=== PATIENT | female | born 1980 | race Caucasian/White ===

== ENCOUNTER → 2017-08-26 10:52 | Outpatient (CLI) | payer OTHER, SELFPAY ==
[2017-08-26 12:31] LABS: Thyroid Stimulating Hormone 1.49 uIU/ml (0.358-3.740)
== END ==
PROVIDERS: PCP Obstetrics & Gynecology; Visit Provider Obstetrics & Gynecology
DX: E66.9 Obesity, unspecified (principal)
CPT/HCPCS: 36415; 84443

== ENCOUNTER → 2018-10-17 09:49 | Outpatient (POV) | payer OTHER, SELFPAY | PROVIDERS: Visit Provider Specialist | DX: R20.2 Paresthesia of skin (principal); R20.0 Anesthesia of skin; M79.632 Pain in left forearm; M79.631 Pain in right forearm | CPT/HCPCS: 95886; 95908 ==

== ENCOUNTER → 2019-01-29 13:10 | Outpatient (CLI) | payer OTHER, SELFPAY ==
[2019-01-29 15:22] LABS: Alanine Aminotransferase 25 U/L (12-78); Albumin Level 3.5 gm/dL (3.4-5.0); Alkaline Phosphatase 89 U/L (46-116); Anion Gap 11.8 mEq/L (5-15); Aspartate Amino Transferase 18 U/L (15-37); Bilirubin,Total 0.5 mg/dL (0.2-1.0); Blood Urea Nitrogen 11 mg/dL (7-18); Calcium 8.8 mg/dL (8.5-10.1); Carbon Dioxide 27 mmol/L (21.0-32.0); Chloride 102 mmol/L (98-107); Chol/HDL Ratio 4.2 (1-3.5); Cholesterol 154 mg/dL (140-200); Creatinine,Serum 0.92 mg/dL (0.55-1.02); Estimated Glomerular Filt Rate 69 ml/min (>60); Free T4 (Free Thyroxine) 0.98 ng/dl (0.76-1.46); GFR (African American) 84 ML/MIN (>60); Globulin 3.6 gm/dl (1.3-3.2); Glucose 103 mg/dL (74-106); HDL Cholesterol 37 mg/dL (29-89); LDL Cholesterol 99 mg/dL (0-130); Potassium 3.8 mmoL/L (3.5-5.1); Sodium 137 mmol/L (136-145); Thyroid Stimulating Hormone 2.38 uIU/ml (0.358-3.740); Total Protein,Serum 7.1 gm/dL (6.4-8.2); Triglycerides 88 mg/dL (30-200); VLDL Cholesterol 18 mg/dL (0-40)
[2019-01-29 15:30] LABS: Basophils # 0.1 K/mm3 (0-0.2); Basophils % 0.6 % (0.1-2.0); Eosinophils # 0.5 K/mm3 (0.0-0.4); Eosinophils % 5.1 % (0.1-12.0); Hematocrit 38.3 % (37.0-47.0); Hemoglobin 11.9 g/dL (12.2-16.2); Lymphocytes # 2.3 K/mm3 (0.7-4.5); Lymphocytes % 22.3 % (10-50); Mean Corpuscular HGB Conc 31.1 g/dL (31.8-35.4); Mean Corpuscular Volume 80.5 fl (81-99); Mean Platelet Volume 6.9 fl (7.4-10.4); Monocytes # 0.5 K/mm3 (0.1-1.0); Monocytes % 5.2 % (1.7-9.3); Neutrophils # 6.8 K/mm3 (1.8-7.8); Neutrophils % 66.9 % (37.0-80.0); Platelet Count 427 K/mm3 (142-424); Red Blood Count 4.76 M/mm3 (4.20-5.40); Red Cell Distribution Width 14.4 % (11.5-17.5); White Blood Count 10.1 K/mm3 (4.8-10.8)
[2019-01-30 14:22] LABS: Vitamin D 25 Hydroxy 48.4 ng/mL (30.0-100.0)
== END ==
PROVIDERS: Visit Provider Nurse Practitioner Family
DX: Z00.00 Encounter for general adult medical examination without abnormal findings (principal); Z79.899 Other long term (current) drug therapy
CPT/HCPCS: 80053; 80061; 82652; 84439; 84443; 85025

== ENCOUNTER → 2019-01-29 17:32 | Outpatient (CLI) | payer OTHER, SELFPAY ==
--- NOTE | 2019-01-29 17:41 | XR_ITS ---
PROCEDURE: XR CHEST 2V CLINICAL HISTORY: cough COMPARISON: No exams were available for comparison FINDINGS: The cardiomediastinal silhouette and pulmonary vascularity are within normal limits. The lungs are clear without infiltrates, suspicious nodules, or pleural effusions. No acute bony abnormalities. IMPRESSION: No acute findings. Dictated by: Parish Andrade MD 01/30/2019 06:24 Signed by: <Electronically signed by Parish Andrade MD in [place]> 01/30/2019 06:24
== END ==
PROVIDERS: PCP Nurse Practitioner Family; Visit Provider Nurse Practitioner Family
DX: Z00.00 Encounter for general adult medical examination without abnormal findings (principal); F17.200 Nicotine dependence, unspecified, uncomplicated
CPT/HCPCS: 71046

== ENCOUNTER → 2019-02-07 10:36 | Outpatient (CLI) | payer OTHER, SELFPAY ==
[2019-02-07 14:39] LABS: Ferritin 27 ng/mL (8-388)
[2019-02-09 11:09] LABS: Iron 76 ug/dL (27-159); UIBC 286 ug/dL (131-425)
[2019-02-09 13:10] LABS: Iron Saturation 21 % (15-55)
== END ==
PROVIDERS: Visit Provider Nurse Practitioner Family
DX: D64.9 Anemia, unspecified (principal); R53.83 Other fatigue
CPT/HCPCS: 36415; 82728; 83540; 83550

== ENCOUNTER → 2019-02-13 17:11 | Outpatient (CLI) | payer OTHER, SELFPAY | PROVIDERS: Visit Provider Nurse Practitioner Family | DX: R30.9 Painful micturition, unspecified (principal) | CPT/HCPCS: 87086; 87088; 87186 ==

== ENCOUNTER → 2019-03-02 09:06 | Outpatient (CLI) | payer OTHER, SELFPAY ==
[2019-03-02 09:42] LABS: Basophils % 0.5 % (0.1-2.0); Eosinophils # 0.5 K/mm3 (0.0-0.4); Eosinophils % 5.2 % (0.1-12.0); Hematocrit 37.9 % (37.0-47.0); Hemoglobin 11.7 g/dL (12.2-16.2); Lymphocytes # 2.3 K/mm3 (0.7-4.5); Lymphocytes % 26.2 % (10-50); Mean Corpuscular HGB Conc 30.9 g/dL (31.8-35.4); Mean Corpuscular Hemoglobin 24.9 pg (27.0-31.2); Mean Corpuscular Volume 80.7 fl (81-99); Mean Platelet Volume 6.8 fl (7.4-10.4); Monocytes # 0.4 K/mm3 (0.1-1.0); Monocytes % 4.2 % (1.7-9.3); Neutrophils # 5.6 K/mm3 (1.8-7.8); Neutrophils % 63.9 % (37.0-80.0); Platelet Count 385 K/mm3 (142-424); Red Blood Count 4.69 M/mm3 (4.20-5.40); Red Cell Distribution Width 15.7 % (11.5-17.5); White Blood Count 8.8 K/mm3 (4.8-10.8)
[2019-03-02 11:10] LABS: Thyroid Stimulating Hormone 2.25 uIU/ml (0.358-3.740)
== END ==
PROVIDERS: Visit Provider Obstetrics & Gynecology
DX: N93.8 Other specified abnormal uterine and vaginal bleeding (principal)
CPT/HCPCS: 36415; 84443; 85025

== ENCOUNTER → 2019-03-04 09:58 | Outpatient (CLI) | payer OTHER, SELFPAY ==
--- NOTE | 2019-03-04 09:59 | US_ITS ---
PROCEDURE: US TRANSVAGINAL CLINICAL INDICATION: PELVIC PAIN COMPARISON: PTV US PELVIS-TRANSVAGINAL ONLY from 01/29/2014 FINDINGS: Uterus is empty and measures 8.8 x 4.4 x 5.0 centimetres. Endometrial stripe is 1.2 centimeters. There is no cul-de-sac fluid. Right ovary is 3.2 x 2.1 x 2.9 centimeters small follicles and blood flow. Left ovary is 3.1 x 1.6 x 2.9 centimeters with small follicles and blood flow. IMPRESSION: Bilateral of varying follicles. No acute process. Dictated by: Román Vines 03/04/2019 14:12 Electronically signed by Román Vines in [place] 03/04/2019 14:12
== END ==
PROVIDERS: PCP Nurse Practitioner Family; Visit Provider Obstetrics & Gynecology
DX: R10.2 Pelvic and perineal pain (principal)
CPT/HCPCS: 76830

== ENCOUNTER → 2019-12-11 10:34 | Outpatient (CLI) | payer OTHER, SELFPAY ==
[2019-12-11 13:09] LABS: Coronavirus 19 IgG Antibody Negative (Negative); Coronavirus 19 IgM Antibody Negative (Negative)
== END ==
PROVIDERS: Visit Provider Obstetrics & Gynecology
DX: Z01.818 Encounter for other preprocedural examination (principal)
CPT/HCPCS: 36415; 86328

== ENCOUNTER 2020-06-12 10:26 | Emergency (ER) | payer OTHER, SELFPAY ==
[2020-06-12 10:40] VITALS: BP 157/74; PULSE 119; RESP 21; TEMP 37.4; O2SAT 96; BMI 49.8
--- NOTE | 2020-06-12 11:03 | HMH.EDUTC ---
[facility] [place] Dis[place] Clinical Impression: Strep throat Disposition: Home, Self-Care Condition on Discharge: Good Instructions: DI for Strep Throat, Strep Throat, Cephalexin Additional Instructions: *Monitor Temp, Over the counter Motrin or Tylenol as directed/as needed Tylenol every 4 hours and Motrin every 6 hours (as long as your family doctor has told you that you can take it) for fever or pain. and straight to ER if unable to lower temp less than 101.0 after medication given *Warm salt water gargles may help to soothe the throat *Throat Lozenges *Warm fluids like tea with honey may help to soothe the throat *Sleep elevated *Humidifier/Vaporizer *If you did not take Penicillin shot or was unable to, start taking antibiotic immediately and make sure that you take it for the FULL length of time although you should start to feel better in 24-48 hours *change toothbrush and toothpaste 24-48 hours after starting to take antibiotics so you do not reinfect yourself Monitor Temp. Tylenol and/or Ibuprofen as needed. ER if fever is no less than 101 despite alternating Tylenol and Ibuprofen * Encourage fluids, water, Gatorade, powerade, pedialyte if /toddler/or child *Cold fluids, popsicles and ice cream may feel good on his throat Follow up IMMEDIATELY for new or worsening symptoms or no Noticeable improvement over the next 48-72 hours. 911 for difficulty breathing or swallowing Prescriptions: cephALEXin [Keflex 500mg Cap] 500 mg PO Q12H 10 Days #20 cap Transmission Status: Pending to [id number] Referrals: PCP,No [Primary Care Provider] - As needed Time of Disposition: 11:07 Medical Decision Making - Zander Inquiry Pt receiving controlled substance: No Zander was queried for this patient: No Vital Signs: 06/12/20 10:40 Temperature 99.3 F Temperature Source Oral Pulse Rate [Left Brachial] 119 H Respiratory Rate 21 Blood Pressure [Left Arm] 157/74 H Blood Pressure Mean [Left Arm] 101 Blood Pressure Source [Left Arm] Automatic Cuff Blood Pressure Position [Left Arm] Sitting 02 Sat by Pulse Oximetry 96 Oxygen Delivery Method Room Air Medical Decision Narrative: Patient states that she has taken Keflex before without complications or reactions [facility] [place] HPI - General Stated complaint: strep throat Time Seen by Provider: 06/12/20 11:03 Mode of Arrival: Ambulatory Source of Information: Patient Limitations: No Limitations Description of Symptoms (Recalled from Triage Doc. by RN): PATIENT C/O SORE THROAT WITH RIGHT PATCH TO RIGHT SIDE OF THROAT HEENT Symptoms (Recalled from RN notes): Yes Resp Symptoms (Recalled from RN notes): No Skin Symptoms (Recalled from RN notes): No MS Symptoms (Recalled from RN notes): No Functional Status (Recalled from RN notes): WNL - History of Present Illness Provider Complaint: Patient state that for the last couple of days she has been having sore throat States that today she noticed she had white patchy area on right side of throat and thinks she may have strep throat so she came in to get checked - Related Data Home Medications Medication Instructions Recorded Confirmed Losartan Potassium [Cozaar 100mg 100 mg PO DAILY 06/12/20 06/12/20 Tablets] Metoprolol Succinate [Metoprolol 25 mg PO DAILY 06/12/20 06/12/20 Succinate 25mg Tablet*] hydroCHLOROthiazide 12.5 mg PO DAILY 06/12/20 06/12/20 [Hydrochlorothiazide 12.5mg Tab] Previous Rx's Medication Instructions Recorded cephALEXin [Keflex 500mg Cap] 500 mg PO Q12H 10 Days #20 cap 06/12/20 Allergies Allergy/AdvReac Type Severity Reaction Status Date / Time Penicillins [PENICILLINS] Allergy Unknown Verified 05/25/20 08:30 - Worker's Comp Is this a Worker's Comp case?: No [facility] History - Hepatitis A Screen Drug use history?: No High risk sexual behaviors?: No History of sexually transmitted infection?: No Currently employed?: No Childcare worker?: No Do you have indoor p
[2020-06-12 11:06] LABS: UTC Strep Screen (Rapid) Positive (Negative)
[2020-06-12 11:11] VITALS: BP 157/74; PULSE 119; RESP 21; TEMP 37.4; O2SAT 96
== END 2020-06-12 11:13 | disposition home or self-care (01) ==
PROVIDERS: Emergency Provider Nurse Practitioner
DX: J02.0 Streptococcal pharyngitis (principal); I10 Essential (primary) hypertension; K21.9 Gastro-esophageal reflux disease without esophagitis; Z79.899 Other long term (current) drug therapy
CPT/HCPCS: 87880; 99202; G0463

== ENCOUNTER → 2020-06-29 13:36 | Outpatient (CLI) | payer OTHER, SELFPAY ==
--- NOTE | 2020-06-29 13:40 | XR_ITS ---
PROCEDURE: XR CHEST 2V CLINICAL HISTORY: cough COMPARISON: CR XR CHEST 2V from 01/29/2019 FINDINGS: The cardiomediastinal silhouette and pulmonary vascularity are within normal limits. The lungs are clear without infiltrates, suspicious nodules, or pleural effusions. No acute bony abnormalities. IMPRESSION: No acute findings. Dictated by: Parish Andrade MD 06/29/2020 16:39 Parish Andrade MD in [place] 06/29/2020 16:39
== END ==
PROVIDERS: Visit Provider Nurse Practitioner Family
DX: R06.09 Other forms of dyspnea (principal); R05 Cough; I10 Essential (primary) hypertension; E78.5 Hyperlipidemia, unspecified; F17.200 Nicotine dependence, unspecified, uncomplicated; G47.33 Obstructive sleep apnea (adult) (pediatric); Z99.89 Dependence on other enabling machines and devices
CPT/HCPCS: 71046

== ENCOUNTER → 2020-07-08 15:07 | Outpatient (CLI) | payer OTHER, SELFPAY ==
--- NOTE | 2020-07-08 15:08 | CA_ITS ---
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 Ht: 5 ft 6 in Wt: 306lbs BSA: 2.40 BP: 135/54 mmHg Indications: SOA,SMOKER,HTN,OBESITY,HLD,HENNA TDS-BODY HABITUS 2D Dimensions LVOT 1.96 cm (M/F) 1.5-2.5 LA Volume 42.30 mL LA Volume Index 17.69 mL/m2 (M/F) 16-34 M-Mode Dimensions RVDd 2.88 cm (0.9-2.6) LA Diam 4.12 cm (1.9-4.0) LVDd 4.33 cm (3.5-5.7) Ao Diam 2.86 cm (2.0-3.7) LVDs 2.69 cm (3.5-5.7) IVSd 1.18 cm (0.6-1.1) PWd 0.61 cm (0.6-1.1) EF (Teich) 68.20% FS 37.90% EDV (Teich) 84.40 mL ESV (Teich) 26.80 mL LV Diastology E Decel Time 150.00 (160-240 msec) E/A Ratio 1.8 MED E' 10.00 (< 7 cm/sec) E'/MED E' Ratio 12.30 (>14) LAT E' 15.60 (<10 cm/sec) E/LAT E' Ratio 7.88 (>14) Aortic Valve AO Peak GR. 7.30 mmHg Mitral Valve MV E Max Billy. 123.00 (40-130 cm/s) MV A Velocity 68.00 (40-130 cm/s) E/A Ratio 1.81 MV Decel. Time 150.00 (160-240 ms) MV PHT 44.00 ms Pulmonary Valve PV Peak Velocity 69.00 (50-150 cm/s) Left Ventricle Left atrium is mildly enlarged, left ventricle is normal size, there is no concentric left ventricular hypertrophy, visually estimated ejection fraction 55% with no regional wall motion abnormality, diastolic parameters are within normal range. Right Ventricle Right atrium is normal size, right ventricle is mildly enlarged with normal contractility. Aortic Valve Aortic valve is grossly normal, there is no aortic stenosis or aortic insufficiency. Mitral Valve Mitral valve is grossly normal, there is trace mitral regurgitation. Tricuspid Valve Tricuspid valve is grossly normal, there is trace tricuspid regurgitation, tricuspid regurgitation jet velocity is inadequate for calculation of the right ventricular systolic pressure. Pulmonic Valve Pulmonic valve is poorly visualized. Great Vessels Aortic root is normal size. Pericardium No significant pericardial effusion noted. Conclusion 1. Normal left ventricular size, preserved left ventricular systolic function, visually estimated ejection fraction 55% with no regional wall motion abnormality, diastolic parameters are within normal range. 2. Mildly enlarged right ventricle with normal contractility. 3. Trace mitral and tricuspid regurgitation. 4. No significant pericardial effusion noted. Electronically signed by : Nestor Estrada, 07/11/2020 20:42:15
== END ==
PROVIDERS: PCP Nurse Practitioner Family; Visit Provider Nurse Practitioner Family
DX: R06.00 Dyspnea, unspecified (principal); I10 Essential (primary) hypertension; E78.5 Hyperlipidemia, unspecified; R53.83 Other fatigue; E66.9 Obesity, unspecified; F17.200 Nicotine dependence, unspecified, uncomplicated; G47.33 Obstructive sleep apnea (adult) (pediatric); Z99.89 Dependence on other enabling machines and devices
CPT/HCPCS: 93306

== ENCOUNTER 2020-12-13 16:35 | Emergency (ER) | payer OTHER, SELFPAY ==
[2020-12-13 17:09] VITALS: BP 130/85; PULSE 87; RESP 16; TEMP 36.9; O2SAT 99; BMI 46.3
--- NOTE | 2020-12-13 17:49 | HMH.EDUTC ---
[facility] [place] Impression: Left leg cellulitis Disposition: Home, Self-Care Condition on Discharge: Good Instructions: Cellulitis Additional Instructions: Keep the affected area clean and dry. Follow up with your regular doctor. Take the antibiotics as directed and apply the topical antibiotics as directed. Apply warm wet compresses to the affected area three or four times per day. GO TO THE ER FOR ANY WORSENING SYMPTOMS Prescriptions: Sulfamethoxazole/Trimethoprim [Bactrim DS tablet] 1 each PO BID 10 Days #20 tab Transmission Status: Received by [facility] Mupirocin [Bactroban 2% Ointment 22gm tube] 1 applicatio TP TID 7 Days #1 tube Transmission Status: Received by [facility] cephALEXin [cephALEXin 500mg capsule] 500 mg PO Q6H 10 Days #40 cap Transmission Status: Received by [facility] Referrals: Jose Luke APRN [Primary Care Provider] - Time of Disposition: 17:55 Medical Decision Making - Medical Records Medical records reviewed: No: I reviewed the patient's medical records. - Zander Inquiry Pt receiving controlled substance: No Vital Signs: 12/13/20 17:09 12/13/20 17:55 Temperature 98.5 F 98.5 F Temperature Source Oral Pulse Rate 85 Pulse Rate [Left] 87 Respiratory Rate 16 16 Blood Pressure 128/84 Blood Pressure [Right Arm] 130/85 Blood Pressure Mean [Right Arm] 100 02 Sat by Pulse Oximetry 99 [facility] [place] - General Stated complaint: bee sting on calf Time Seen by Provider: 12/13/20 17:40 Mode of Arrival: Ambulatory Source of Information: Patient Limitations: No Limitations Description of Symptoms (Recalled from Triage Doc. by RN): pt believes she has been bitten or stung by an insect. she has a baseball sized rash on her L calf that she c/o itching. HEENT Symptoms (Recalled from RN notes): No Resp Symptoms (Recalled from RN notes): No Skin Symptoms (Recalled from RN notes): Yes (baseball sized rash to L calf) MS Symptoms (Recalled from RN notes): No Functional Status (Recalled from RN notes): na - History of Present Illness Provider Complaint: She states that she has had a red area on her left lower leg for the past 5 days. The redness is getting worse. She denies significant pain at the site. It does itch some. She denies any drainage or open wound at the site. - Related Data Previous Rx's Medication Instructions Recorded amlodipine 10 mg tablet 10 mg PO DAILY #30 tab 12/12/20 hydrochlorothiazide 12.5 mg tablet 12.5 mg PO DAILY #30 tab 12/12/20 metoprolol succinate 25 mg 25 mg PO DAILY #30 tab 12/12/20 tablet,extended release 24 hr Mupirocin [Bactroban 2% Ointment 1 applicatio TP TID 7 Days #1 tube 12/13/20 22gm tube] Sulfamethoxazole/Trimethoprim 1 each PO BID 10 Days #20 tab 12/13/20 [Bactrim DS tablet] cephALEXin [cephALEXin 500mg 500 mg PO Q6H 10 Days #40 cap 12/13/20 capsule] Allergies Allergy/AdvReac Type Severity Reaction Status Date / Time Penicillins [PENICILLINS] Allergy Unknown Verified 08/24/20 08:55 - Worker's Comp Is this a Worker's Comp case?: No [facility] History - Hepatitis A Screen Drug use history?: No High risk sexual behaviors?: No History of sexually transmitted infection?: No Currently employed?: No Childcare worker?: No Do you have indoor plumbing?: Yes Do you have electricity?: Yes Attestation statement:: This patient has been screened for Hepatitis A risk factors. I have reviewed the patient's past medical history: Yes Medical History: Reports:: Gastroesophageal Reflux Disease(GERD), Hypertension Other Medical History: Reports: Sinus Problems, Other Comment: HENNA Other Surgeries: Yes: Sinus Surgery, Other Amputation: No Fractures: No Comment: wisdom teeth. 2011-sinus surgery. 2017-Lasik, bilaterally - Social History Smoking Status: Current every day smoker Tobacco Type: cigarettes # Packs/Day (cigarettes): 1 #Yrs smoked (if former smoker): 5 Alcoh
[2020-12-13 17:55] VITALS: BP 128/84; PULSE 85; RESP 16; TEMP 36.9
== END 2020-12-13 18:05 | disposition home or self-care (01) ==
PROVIDERS: Emergency Provider Nurse Practitioner Family; PCP Nurse Practitioner Family
DX: L03.116 Cellulitis of left lower limb (principal); S80.862A Insect bite (nonvenomous), left lower leg, initial encounter; W57.XXXA Bitten or stung by nonvenomous insect and other nonvenomous arthropods, initial encounter; F17.210 Nicotine dependence, cigarettes, uncomplicated

== ENCOUNTER → 2021-02-22 09:56 | Outpatient (CLI) | payer OTHER, SELFPAY ==
[2021-02-22 10:56] LABS: Chloride 104 mmol/L (98-107); Sodium 140 mmol/L (136-145)
[2021-02-22 10:57] LABS: Potassium 3.9 mmoL/L (3.5-5.1)
[2021-02-22 10:59] LABS: Alanine Aminotransferase 14 U/L (12-78); Alkaline Phosphatase 79 U/L (38-126); Anion Gap 14.9 mEq/L (5-15); Aspartate Amino Transferase 18 U/L (14-36); Bilirubin,Direct 0.1 mg/dl (0.0-0.4); Bilirubin,Indirect 0.4 mg/dL (0.0-0.9); Bilirubin,Total 0.5 mg/dl (0.2-1.3); Bilirubin,Unconjugated 0.4 mg/dL (0.0-1.1); Blood Urea Nitrogen 9 mg/dl (7-17); Carbon Dioxide 25 mmol/L (22.0-30.0); Cholesterol 150 mg/dl (140-200); Estimated Glomerular Filt Rate 94 ml/min (>60); GFR (African American) 113 ML/MIN (>60); Triglycerides 80 mg/dl (30-150); VLDL Cholesterol 16 mg/dL (0-40)
[2021-02-22 11:00] LABS: Albumin Level 4.1 g/dl (3.5-5.0); Calcium 8.7 mg/dl (8.4-10.2); Chol/HDL Ratio 3.6 (1-3.5); Glucose 115 mg/dl (74-100); HDL Cholesterol 42 mg/dl (40-60); Total Protein,Serum 7.2 g/dl (6.3-8.2)
[2021-02-22 11:11] LABS: Direct LDL Cholesterol 89.42 mg/dL (100-129)
== END ==
PROVIDERS: Visit Provider Urology
DX: I10 Essential (primary) hypertension (principal); E78.2 Mixed hyperlipidemia
CPT/HCPCS: 36415; 80048; 80061; 80076

== ENCOUNTER 2021-04-10 16:49 | Emergency (ER) | payer OTHER, SELFPAY ==
[2021-04-10 18:15] VITALS: BP 102/62; PULSE 102; RESP 19; TEMP 37.1; O2SAT 98; BMI 45.6
--- NOTE | 2021-04-10 19:16 | HMH.EDUTC ---
[facility] [place] Disposition Clinical Impression: Sinusitis Qualifiers: Sinusitis location: unspecified location Chronicity: unspecified Qualified Code(s): J32.9 - Chronic sinusitis, unspecified Disposition: Home, Self-Care Condition on Discharge: Good Instructions: Sinusitis, DI for Sinusitis Additional Instructions: *Monitor Temp, Over the counter Motrin or Tylenol as directed/as needed Tylenol every 4 hours and Motrin every 6 hours (as long as your family doctor has told you that you can take it) for fever or pain. and straight to ER if unable to lower temp less than 101.0 after medication given *Warm salt water gargles may help to soothe the throat *Throat Lozenges *Warm fluids like tea with honey may help to soothe the throat *Sleep elevated *Humidifier/Vaporizer *Flonase 2 sprays in each nostril daily but be aware that it may take 2-3 days before you notice improvement Take medication as prescribed Follow up IMMEDIATELY for new or worsening symptoms or no Noticeable improvement over the next 48-72 hours. 911 for difficulty breathing or swallowing Prescriptions: Fluticasone Propionate [Flonase 50mcg nasal spray 16gm] 1 spr NS DAILY #1 each [facility] methylPREDNISolone [Medrol 4mg tab] 4 mg PO DIRECTED #21 tab Transmission Status: Pending to [facility] Azithromycin [Z-Rocky 250mg Tab] 250 mg PO DIRECTED #6 tab Transmission Status: Pending to [facility] Referrals: Provider,Referral, MD [Primary Care Provider] - As needed Time of Disposition: 19:26 Medical Decision Making - Zander Inquiry Pt receiving controlled substance: No Zander was queried for this patient: No Vital Signs: 04/10/21 18:15 Temperature 98.8 F Temperature Source Oral Pulse Rate [Right Brachial] 102 H Respiratory Rate 19 Blood Pressure [Right Arm] 102/62 L Blood Pressure Mean [Right Arm] 75 Blood Pressure Source [Right Arm] Automatic Cuff Blood Pressure Position [Right Arm] Sitting 02 Sat by Pulse Oximetry 98 Oxygen Delivery Method Room Air Medical Decision Narrative: Denies [facility] [place] HPI - General Stated complaint: sinus infection Time Seen by Provider: 04/10/21 19:19 Mode of Arrival: Ambulatory Source of Information: Patient Limitations: No Limitations Description of Symptoms (Recalled from Triage Doc. by RN): PATIENT C/O SINUS PAIN AND PRESSURE SINCE SATURDAY HEENT Symptoms (Recalled from RN notes): Yes Resp Symptoms (Recalled from RN notes): No Skin Symptoms (Recalled from RN notes): No MS Symptoms (Recalled from RN notes): No Functional Status (Recalled from RN notes): WNL - History of Present Illness Provider Complaint: Patient states that she started with sinus congestion over a week ago but since Saturday she has been having sinus pain and pressure along with drainage in the back of her throat States that at times she can cough it up but feels like she is swallowing some of it and it makes her have a bad taste in her mouth States that this evening she was having pressure like feeling behind her eyes and felt worse when she would bend over so she came in to get checked - Related Data Home Medications Medication Instructions Recorded Confirmed Amlodipine Besylate [Amlodipine 10 mg PO DAILY 04/10/21 04/10/21 10mg Tab] Metoprolol Succinate [Metoprolol 25 mg PO DAILY 04/10/21 04/10/21 Succinate 25mg Tablet*] Previous Rx's Medication Instructions Recorded hydrochlorothiazide 12.5 mg tablet 12.5 mg PO DAILY #30 tab 02/22/21 Azithromycin [Z-Rocky 250mg Tab] 250 mg PO DIRECTED #6 tab 04/10/21 Fluticasone Propionate [Flonase 1 spr NS DAILY #1 each 04/10/21 50mcg nasal spray 16gm] methylPREDNISolone [Medrol 4mg 4 mg PO DIRECTED #21 tab 04/10/21 tab] Allergies Allergy/AdvReac Type Severity Reaction Status Date / Time Penicillins [PENICILLINS] Allergy Unknown Verified 04/07/21 08:26 - Worker's Comp Is this a
[2021-04-10 19:27] VITALS: BP 102/62; PULSE 102; RESP 19; TEMP 37.1; O2SAT 98
== END 2021-04-10 19:30 | disposition home or self-care (01) ==
PROVIDERS: Emergency Provider Nurse Practitioner
DX: J32.9 Chronic sinusitis, unspecified (principal); K21.9 Gastro-esophageal reflux disease without esophagitis; I10 Essential (primary) hypertension; F17.210 Nicotine dependence, cigarettes, uncomplicated
CPT/HCPCS: 99202; G0463

== ENCOUNTER → 2021-05-23 20:40 | Outpatient (CLI) | payer OTHER, SELFPAY | PROVIDERS: PCP Emergency Medicine; Visit Provider Nurse Practitioner | DX: U07.1 COVID-19 (principal) | CPT/HCPCS: C9803; U0003; U0005 ==

== ENCOUNTER → 2021-10-25 12:46 | Outpatient (CLI) | payer OTHER, SELFPAY ==
--- NOTE | 2021-10-25 12:46 | US_ITS ---
FINAL REPORT TECHNIQUE: Sonographic images of the pelvis were obtained transvaginally. CLINICAL HISTORY: HEAVY DUB-- X 3 WKS COMPARISON: 03/04/2019 FINDINGS: The uterus is anteverted and anteflexed. It measures 9.4 x 4.5 x 5.8 cm. The endometrial stripe measures 9 mm. This is normal for a. The myometrium is homogeneous. Nabothian cysts are noted in the cervix which is otherwise unremarkable. The right ovary measures 1.3 x 2.5 x 1.0 cm. A small cyst adjacent to the right ovary could be a par ovarian cyst or small exophytic cyst. This measures 1.9 cm. The left ovary measures 4.6 x 5.5 x 3.2 cm. There is a simple, 4.7 cm cyst, likely functional. Color imaging to the ovaries is within normal limits. There is no free fluid. IMPRESSION: 1. Normal endometrial stripe for age. 2. Left ovarian cyst, likely functional. Consider follow-up exam in 6 or 10 weeks to evaluate for expected resolution. 3. Small right paraovarian cyst versus exophytic cyst. This can also be reevaluated at short follow-up. Authenticated by Vibha Wild MD on 10/25/2021 05:13:16 PM [facility]
[2021-10-25 14:00] LABS: Basophils # 0.1 K/mm3 (0-0.2); Basophils % 1.1 % (0.1-2.0); Eosinophils # 0.5 K/mm3 (0.0-0.4); Eosinophils % 5.3 % (0.1-12.0); Hematocrit 38.7 % (37.0-47.0); Lymphocytes # 2.4 K/mm3 (0.7-4.5); Lymphocytes % 26.8 % (10-50); Mean Corpuscular HGB Conc 33.6 g/dL (31.8-35.4); Mean Corpuscular Hemoglobin 27.8 pg (27.0-31.2); Mean Corpuscular Volume 82.7 fl (81-99); Mean Platelet Volume 7.5 fl (7.4-10.4); Monocytes # 0.5 K/mm3 (0.1-1.0); Monocytes % 5.3 % (1.7-9.3); Neutrophils # 5.6 K/mm3 (1.8-7.8); Neutrophils % 61.4 % (37.0-80.0); Platelet Count 366 K/mm3 (142-424); Red Blood Count 4.68 M/mm3 (4.20-5.40); Red Cell Distribution Width 14.3 % (11.5-17.5); White Blood Count 9.1 K/mm3 (4.8-10.8)
[2021-10-25 15:46] LABS: Thyroid Stimulating Hormone 1.94 uIU/mL (0.465-4.68)
== END ==
PROVIDERS: PCP Emergency Medicine; Visit Provider Obstetrics & Gynecology
DX: N93.8 Other specified abnormal uterine and vaginal bleeding (principal)
CPT/HCPCS: 36415; 76830; 84443; 85025

== ENCOUNTER → 2021-12-01 13:45 | Outpatient (CLI) | payer OTHER, SELFPAY ==
--- NOTE | 2021-12-01 13:45 | US_ITS ---
FINAL REPORT CLINICAL HISTORY: 6 week follow up, ovarian cyst COMPARISON: October 25, 2021 FINDINGS: Transvaginal sonographic images of the pelvis were obtained. The uterus measures 9.9 x 5.1 x 4.1 cm. The endometrium measures 8 mm, which is within normal limits. No uterine mass is identified. The right ovary measures 5.7 cm in length and left ovary measures 3.1 cm in length. Normal blood flow seen to the ovaries. There is a small cyst on the left ovary that measures 1.3 cm and previously measured 4.7 cm. There is a cyst on the right ovary that measures 4.2 cm. There is no evidence of free fluid. IMPRESSION: Bilateral ovarian cysts. Consider 6 week follow-up. Reviewed, Interpreted and Dictated by Albaro Lund III, MD Transcribed by Salma Acevedo Authenticated and [facility]
== END ==
PROVIDERS: PCP Emergency Medicine; Visit Provider Obstetrics & Gynecology
DX: N83.209 Unspecified ovarian cyst, unspecified side (principal)
CPT/HCPCS: 76830

== ENCOUNTER 2021-12-01 14:28 | Emergency (ER) | payer OTHER, SELFPAY ==
[2021-12-01 15:02] VITALS: BP 149/90; PULSE 91; RESP 18; TEMP 37.1; O2SAT 97; BMI 45.2
--- NOTE | 2021-12-01 15:08 | HMH.EDUTC ---
[facility] [place] Disposition Clinical Impression: Contact dermatitis Qualifiers: Contact dermatitis type: allergic Contact dermatitis trigger: non-food plants Qualified Code(s): L23.7 - Allergic contact dermatitis due to plants, except food Disposition: Home, Self-Care Condition on Discharge: Good Instructions: Poison Rani, Poison [place], Poison [place], DI for Contact Dermatitis Additional Instructions: Try to identify and avoid contact with the offending substance (poison rani). Don't start the oral steroids until tomorrow. Don't put the topical steroids (triamcinolone) on your face or your groin. Follow up with your regular doctor. GO TO THE ER FOR ANY WORSENING SYMPTOMS OR CONCERNS Prescriptions: diphenhydrAMINE HCL [Diphenhydramine HCl] 25 mg PO Q6HP PRN #30 cap PRN Reason: Itching Transmission Status: Received by [facility] methylPREDNISolone [Medrol] 4 mg PO DIRECTED 6 Days #21 packet Transmission Status: Received by [facility] Triamcinolone Acetonide 1 applicatio TP TIDP PRN 7 Days #1 gm PRN Reason: Itching Transmission Status: Received by [facility] Referrals: Christos Love MD [Primary Care Provider] - Forms: Work/School Release Time of Disposition: 15:20 Medical Decision Making - Medical Records Medical records reviewed: No: I reviewed the patient's medical records. - Zander Inquiry Pt receiving controlled substance: No Vital Signs: 12/01/21 15:02 12/01/21 15:21 Temperature 98.8 F 98.8 F Temperature Source Oral Pulse Rate 91 H Pulse Rate [Left] 91 H Respiratory Rate 18 18 Blood Pressure 149/90 H Blood Pressure [Right Arm] 149/90 H Blood Pressure Mean [Right Arm] 109 02 Sat by Pulse Oximetry 97 Orders (Tests/Meds): ED MEDICATIONS Discontinued Medications Generic Name Dose Route Start Last Admin Trade Name Freq PRN Reason Stop Dose Admin Methylprednisolone Sodium Succinate 125 mg 12/01/21 15:08 12/01/21 15:19 Methylprednisolone Sod Succ 125mg Vial IM 12/01/21 15:09 125 mg ONCE ONE Administration [facility] [place] HPI - General Stated complaint: rash Time Seen by Provider: 12/01/21 15:08 Description of Symptoms (Recalled from Triage Doc. by RN): patient comes in for bug bites, rash around ankles.symptoms began 1 week ago HEENT Symptoms (Recalled from RN notes): No Resp Symptoms (Recalled from RN notes): No Skin Symptoms (Recalled from RN notes): Yes MS Symptoms (Recalled from RN notes): No Functional Status (Recalled from RN notes): wnl - History of Present Illness Provider Complaint: She states that she has had a rash on her bilateral lower legs for the past 3 days. It began after she mowed her yard and weedeated. She states that the affected area itches a lot. She denies any rash anywhere else. She denies any fever/chills/and other symptoms. - Related Data Home Medications Medication Instructions Recorded Confirmed cholecalciferol (vitamin D3) 125 125 mcg PO DAILY 10/19/21 11/03/21 mcg (5,000 unit) capsule valacyclovir 1 gram tablet 1,000 mg PO BID tab 10/19/21 11/03/21 Previous Rx's Medication Instructions Recorded Fluticasone Propionate [Flonase 1 spr NS DAILY #1 each 04/10/21 50mcg nasal spray 16gm] amlodipine 10 mg tablet 10 mg PO DAILY #90 tab 09/27/21 hydrochlorothiazide 12.5 mg tablet 12.5 mg PO DAILY #30 tab 09/27/21 metoprolol succinate 25 mg 25 mg PO DAILY #30 tab 09/27/21 tablet,extended release 24 hr medroxyprogesterone 10 mg tablet 20 mg PO DAILY PRN #30 tab 10/19/21 Triamcinolone Acetonide 1 applicatio TP TIDP PRN 7 Days #1 12/01/21 gm diphenhydrAMINE HCL 25 mg PO Q6HP PRN #30 cap 12/01/21 [Diphenhydramine HCl] methylPREDNISolone [Medrol] 4 mg PO DIRECTED 6 Days #21 12/01/21 packet Allergies Allergy/AdvReac Type Severity Reaction Status Date / Time Penicillins [PENICILLINS] Allergy Unknown Verified 11/03/21 15:55 - Worker's Comp Is this a Worker's Comp case?: No
[2021-12-01 15:21] VITALS: BP 149/90; PULSE 91; RESP 18; TEMP 37.1
== END 2021-12-01 15:26 | disposition home or self-care (01) ==
PROVIDERS: Emergency Provider Nurse Practitioner Family; PCP Emergency Medicine
DX: L23.7 Allergic contact dermatitis due to plants, except food (principal)
CPT/HCPCS: 96372; 99212; G0463

== ENCOUNTER → 2022-02-09 09:53 | Outpatient (CLI) | payer OTHER, SELFPAY ==
--- NOTE | 2022-02-09 09:53 | US_ITS ---
FINAL REPORT CLINICAL HISTORY: ovarian cyst COMPARISON: December 01, 2021 FINDINGS: Transvaginal sonographic images of the pelvis were obtained. The uterus measures 8.4 x 4.1 cm. The endometrium measures 5 mm, which is within normal limits. No uterine mass is identified. The right ovary measures 2.6 cm cm in length and left ovary measures 4.4 cm cm in length. Normal blood flow seen to the ovaries. There is a left ovarian cyst measuring 3.4 cm and was previously 1.3 cm. There is no evidence of free fluid. IMPRESSION: 3.4 cm left ovarian cyst. Reviewed, Interpreted and Dictated by Albaro Lund III, MD Transcribed by Casie Godinez Authenticated and [facility]
== END ==
PROVIDERS: PCP Emergency Medicine; Visit Provider Obstetrics & Gynecology
DX: N83.209 Unspecified ovarian cyst, unspecified side (principal)
CPT/HCPCS: 76830

== ENCOUNTER → 2022-03-02 08:04 | Outpatient (CLI) | payer OTHER, SELFPAY ==
--- NOTE | 2022-03-02 08:04 | CA_ITS ---
FINAL REPORT TECHNIQUE: Compression blancas scale and Doppler evaluation CLINICAL HISTORY: LLE swelling, denies trauma, prominent varicose veins palpable in the posterior left calf. HTN, obesity. FINDINGS: Femoral and popliteal veins show normal compressibility and flow. Visualized portion of the calf veins are patent by Doppler exam. IMPRESSION: No evidence of left lower extremity deep venous thrombosis Reviewed, Interpreted and Dictated by Rose Guallpa MD Transcribed by Pilar Colvin Authenticated and . [facility]
== END ==
PROVIDERS: PCP Emergency Medicine; Visit Provider Internal Medicine Cardiovascular Disease
DX: M79.662 Pain in left lower leg (principal); M79.89 Other specified soft tissue disorders
CPT/HCPCS: 93971

== ENCOUNTER 2022-03-06 08:42 | Emergency (ER) | payer OTHER, SELFPAY ==
[2022-03-06 08:58] VITALS: BP 115/70; PULSE 68; RESP 18; TEMP 37; O2SAT 97; BMI 43.5
[2022-03-06 09:07] LABS: UTC Strep Screen (Rapid) Positive (Negative)
--- NOTE | 2022-03-06 09:16 | EXP.UTC ---
Discharge Plan Disposition Patient Disposition: Home, Self-Care Condition: Good Prescriptions Prescriptions: New methylprednisolone 4 mg Tablets,Dose Pack 4 mg PO DIRECTED Qty: 21 0RF cefdinir 300 mg capsule 300 mg PO BID Qty: 20 0RF ondansetron 4 mg Tablet,Disintegrating 4 mg PO Q8H PRN (Reason: Nausea) Qty: 20 0RF albuterol sulfate [Ventolin HFA] 90 mcg/actuation HFA aerosol inhaler 2 puff inhalation Q6H PRN (Reason: Shortness Of Breath Or Wheezing) Qty: 1 0RF No Action Slynd 4 mg (28) tablet 1 tab PO DAILY Qty: 28 11RF amlodipine 10 mg tablet 10 mg PO DAILY Qty: 90 2RF hydrochlorothiazide 12.5 mg tablet 12.5 mg PO DAILY Qty: 30 5RF metoprolol succinate 25 mg tablet extended release 24 hr 25 mg PO DAILY Qty: 30 5RF cholecalciferol (vitamin D3) 125 mcg (5,000 unit) capsule 125 mcg PO DAILY valacyclovir 1 gram tablet 1,000 mg PO BID Label Comments: TAKE 1 TABLET BY MOUTH TWICE DAILY fluticasone propionate 120 SPR/BOT bottle 1 spr NS DAILY Qty: 1 0RF Rx Instructions: one spray in each nostril daily Referrals Follow up/Referrals: Provider,Referral, MD [Primary Care Provider] - See instructions Activity Restrictions/Add. Instructions Additional Instructions/Restrictions: Drink plenty of fluids. Take tylenol or ibuprofen for pain or fever. Take the medications as directed. Follow up with your regular doctor. GO TO THE ER FOR ANY WORSENING SYMPTOMS Throw your tooth brush away and get a new one. Don't start the oral steroids until tomorrow, since you had the shot here today. Clinical Impressions Clinical Impression: Strep throat Stand Alone Forms Stand Alone Forms: Work/School Release Instructions Patient Instructions: Strep Throat, DI for Strep Throat, Dexamethasone Injection Discharge ED Provider: Deyvi Alejandra [facility] General Stated complaint: sore throat, cough, chills Mode of Arrival: Ambulatory Source of Information: Patient Limitations: No Limitations Time Seen by Provider: 03/06/22 09:19 Description of Symptoms (Recalled from Triage Doc. by RN): pt comes in with c/o sore throat that began saturday. HEENT Symptoms (Recalled from RN notes): Yes Resp Symptoms (Recalled from RN notes): No Skin Symptoms (Recalled from RN notes): No MS Symptoms (Recalled from RN notes): No Functional Status (Recalled from RN notes): n/a History of Present Illness Provider Complaint: She c/o sore throat for the past 2 days. She has been exposed to strep throat. Related Data Home Medications Medication Instructions Recorded Confirmed cholecalciferol (vitamin D3) 125 125 mcg PO DAILY 10/19/21 02/27/22 mcg (5,000 unit) capsule valacyclovir 1 gram tablet 1,000 mg PO BID 10/19/21 02/27/22 Previous Rx's Medication Instructions Recorded fluticasone propionate 50 1 spr intranasal DAILY #1 ea 04/10/21 mcg/actuation nasal spray,suspension amlodipine 10 mg tablet 10 mg PO DAILY Hypertension #90 09/27/21 tabs hydrochlorothiazide 12.5 mg tablet 12.5 mg PO DAILY Hypertension #30 09/27/21 tabs metoprolol succinate 25 mg 25 mg PO DAILY Hypertension #30 09/27/21 tablet,extended release 24 hr tabs drospirenone (contraceptive) 4 mg 1 tab PO DAILY #28 tabs 02/27/22 (28) tablet (Slynd) albuterol sulfate 90 mcg/actuation 2 puff inhalation Q6H PRN 03/06/22 aerosol inhaler (Ventolin HFA) Shortness Of Breath Or Wheezing #1 g cefdinir 300 mg capsule 300 mg PO BID #20 caps 03/06/22 methylprednisolone 4 mg tablets in 4 mg PO DIRECTED #21 tabs 03/06/22 a dose pack ondansetron 4 mg disintegrating 4 mg PO Q8H PRN Nausea #20 tabs 03/06/22 tablet Allergies Allergy/AdvReac Type Severity Reaction Status Date / Time Penicillins [PENICILLINS] Allergy Unknown Verified 03/06/22 09:01 Worker's Comp Is this a Worker's Comp case?: No PFSH [facility] Medical History (Reviewed 03/06/22 @ 09:32 by Saul Hearn
[2022-03-06 09:44] VITALS: BP 115/70; PULSE 68; RESP 18; TEMP 37
== END 2022-03-06 09:52 | disposition home or self-care (01) ==
PROVIDERS: Emergency Provider Nurse Practitioner Family
DX: J02.0 Streptococcal pharyngitis (principal)
CPT/HCPCS: 87880; 96372; 99212; G0463

== ENCOUNTER → 2022-10-02 08:56 | Outpatient (CLI) | payer OTHER, SELFPAY ==
[2022-10-02 09:25] LABS: Basophils % 0.2 % (0.1-2.0); Eosinophils # 0.1 K/mm3 (0.0-0.4); Eosinophils % 1.3 % (0.1-12.0); Hematocrit 42.3 % (37.0-47.0); Hemoglobin 14.2 g/dL (12.2-16.2); Lymphocytes # 2.3 K/mm3 (0.7-4.5); Lymphocytes % 21.7 % (10-50); Mean Corpuscular HGB Conc 33.6 g/dL (31.8-35.4); Mean Corpuscular Hemoglobin 27.9 pg (27.0-31.2); Mean Corpuscular Volume 83.1 fl (81-99); Monocytes # 0.4 K/mm3 (0.1-1.0); Monocytes % 4.1 % (1.7-9.3); Neutrophils # 7.7 K/mm3 (1.8-7.8); Neutrophils % 72.7 % (37.0-80.0); Platelet Count 412 K/mm3 (142-424); Red Blood Count 5.09 M/mm3 (4.20-5.40); White Blood Count 10.5 K/mm3 (4.8-10.8)
[2022-10-02 09:43] LABS: Chloride 98 mmol/L (98-107)
[2022-10-02 09:44] LABS: Potassium 4.6 mmoL/L (3.5-5.1); Sodium 136 mmol/L (136-145)
[2022-10-02 09:46] LABS: Bilirubin,Unconjugated 0.5 mg/dL (0.0-1.1); Blood Urea Nitrogen 15 mg/dl (7-17); Estimated Glomerular Filt Rate 93 ml/min (>60); GFR (African American) 112 ML/MIN (>60)
[2022-10-02 09:47] LABS: Alanine Aminotransferase 17 U/L (12-78); Albumin Level 4.2 g/dl (3.5-5.0); Alkaline Phosphatase 60 U/L (38-126); Anion Gap 16.6 mEq/L (5-15); Aspartate Amino Transferase 20 U/L (14-36); Bilirubin,Direct 0.1 mg/dl (0.0-0.4); Bilirubin,Indirect 0.5 mg/dL (0.0-0.9); Bilirubin,Total 0.6 mg/dl (0.2-1.3); Calcium 8.8 mg/dl (8.4-10.2); Carbon Dioxide 26 mmol/L (22.0-30.0); Cholesterol 138 mg/dl (140-200); Glucose 106 mg/dl (74-100); Magnesium 1.9 mg/dl (1.6-2.3); Triglycerides 69 mg/dl (30-150); VLDL Cholesterol 14 mg/dL (0-40)
[2022-10-02 09:48] LABS: Chol/HDL Ratio 3.3 (1-3.5); HDL Cholesterol 42 mg/dl (40-60)
[2022-10-02 09:58] LABS: Direct LDL Cholesterol 91.79 mg/dL (100-129)
[2022-10-02 10:03] LABS: Free T4 (Free Thyroxine) 1.23 ng/dl (0.78-2.19)
[2022-10-02 10:18] LABS: Thyroid Stimulating Hormone 2.82 uIU/mL (0.465-4.68)
== END ==
PROVIDERS: Visit Provider Nurse Practitioner
DX: I10 Essential (primary) hypertension (principal); E78.2 Mixed hyperlipidemia; F17.200 Nicotine dependence, unspecified, uncomplicated; Z79.899 Other long term (current) drug therapy
CPT/HCPCS: 36415; 80048; 80061; 80076; 83735; 84439; 84443; 85025

== ENCOUNTER → 2022-11-16 12:37 | Outpatient (CLI) | payer OTHER, SELFPAY ==
--- NOTE | 2022-11-16 12:38 | US_ITS ---
PROCEDURE: US TRANSVAGINAL CLINICAL INDICATION: dub COMPARISON: US US TRANSVAGINAL from 02/09/2022 FINDINGS: UTERUS: 9cm x 6cmx 4cm with a combined endometrial thickness of 1.8mm. The uterus is bulky. In the fundus of the uterus the myometrium appears heterogenous concerning for adenomyosis. There is a 0.6 cm nabothian cyst in the cervix. LEFT OVARY: 4wii4mud2.1cm with a volume of 3ml. RIGHT OVARY: 2cmx [id number] with a volume of 1.8ml. Both ovaries are seen and appear normal. Doppler flow to both ovaries are seen. There is no fluid in the cul-de-sac. IMPRESSION: 1. Bulky anteverted uterus with possible adenomyosis at the fundus. 2. Endometrium is thin measuring 1.8 millimeters 3. Both ovaries are seen and appear normal. 4. The previously described 3.4 cm left ovarian cyst the resolved. Dictated by: Emilio Young MD 11/18/2022 20:05 Emilio Young MD in OV 11/18/2022 20:05
== END ==
PROVIDERS: Visit Provider Obstetrics & Gynecology
DX: N93.8 Other specified abnormal uterine and vaginal bleeding (principal)
CPT/HCPCS: 76830

== ENCOUNTER → 2022-12-28 09:34 | Outpatient (CLI) | payer OTHER, SELFPAY ==
[2022-12-29 07:13] LABS: HBsAg Screen Negative (Negative); HCV Ab Non Reactive (Non Reactive); Hep A Ab, IGM Negative (Negative); Hep B Core Ab, IgM Negative (Negative)
[2022-12-29 08:16] LABS: HIV Screen 4th Generation wRfx Non Reactive (Non Reactive)
[2022-12-29 10:12] LABS: Rapid Plasma Reagin Ab Titer Non Reactive (NonRea<1:1)
== END ==
PROVIDERS: Visit Provider Nurse Practitioner Obstetrics & Gynecology
DX: Z11.3 Encounter for screening for infections with a predominantly sexual mode of transmission (principal); Z11.4 Encounter for screening for human immunodeficiency virus [HIV]
CPT/HCPCS: 36415; 80074; 86593; 86703; G0432

== ENCOUNTER → 2023-03-08 12:26 | Outpatient (CLI) | payer OTHER, SELFPAY ==
[2023-03-10 11:50] LABS: HBsAg Screen Negative (Negative); HCV Ab Non Reactive (Non Reactive); HIV Screen 4th Generation wRfx Non Reactive (Non Reactive); Hep A Ab, IGM Negative (Negative); Hep B Core Ab, IgM Negative (Negative); Rapid Plasma Reagin Ab Titer Non Reactive titer (NonRea<1:1)
== END ==
LOC: LAB 12:26
PROVIDERS: Visit Provider Obstetrics & Gynecology
DX: Z20.2 Contact with and (suspected) exposure to infections with a predominantly sexual mode of transmission (principal); Z72.51 High risk heterosexual behavior; Z11.4 Encounter for screening for human immunodeficiency virus [HIV]; R10.2 Pelvic and perineal pain
CPT/HCPCS: 36415; 80074; 86593; 86703; G0432

== ENCOUNTER 2023-08-01 18:13 | Outpatient (CLI) | payer OTHER, SELFPAY ==
[2023-08-01 17:51] LABS: Microscopic, Urine URINE MICROSCOPIC (MICROSCOPIC)
[2023-08-01 18:11] LABS: Basophils # 0.1 K/mm3 (0-0.2); Basophils % 0.8 % (0.1-2.0); Eosinophils # 0.7 K/mm3 (0.0-0.4); Hematocrit 46.5 % (37.0-47.0); Hemoglobin 14.7 g/dL (12.2-16.2); Lymphocytes % 18.3 % (10-50); Mean Corpuscular HGB Conc 31.6 g/dL (31.8-35.4); Mean Corpuscular Volume 91.6 fl (81-99); Mean Platelet Volume 8.8 fl (7.4-10.4); Monocytes # 0.5 K/mm3 (0.1-1.0); Monocytes % 4.7 % (1.7-9.3); Neutrophils # 7.8 K/mm3 (1.8-7.8); Neutrophils % 70.2 % (37.0-80.0); Platelet Count 486 K/mm3 (142-424); Red Blood Count 5.07 M/mm3 (4.20-5.40); Red Cell Distribution Width 13.6 % (11.5-17.5); White Blood Count 11.1 K/mm3 (4.8-10.8)
[2023-08-01 18:18] LABS: Alanine Aminotransferase 16 U/L (12-78); Albumin Level 4.5 g/dl (3.5-5.0); Albumin/Globulin Ratio 1.4 (1.1-1.8); Alkaline Phosphatase 87 U/L (38-126); Anion Gap 14.9 mEq/L (5-15); Aspartate Amino Transferase 27 U/L (14-36); Bilirubin,Total 0.7 mg/dl (0.2-1.3); Blood Urea Nitrogen 14 mg/dl (7-17); Carbon Dioxide 21 mmol/L (22.0-30.0); Chloride 107 mmol/L (98-107); Chol/HDL Ratio 4.9 (1-3.5); Cholesterol 181 mg/dl (140-200); Estimated Glomerular Filt Rate 110 ml/min (>60); GFR (African American) 133 ML/MIN (>60); Globulin 3.3 g/dL (1.3-3.2); Glucose 106 mg/dl (74-100); HDL Cholesterol 37 mg/dl (40-60); Potassium 3.9 mmoL/L (3.5-5.1); Sodium 139 mmol/L (136-145); Total Protein,Serum 7.8 g/dl (6.3-8.2); Triglycerides 83 mg/dl (30-150); VLDL Cholesterol 17 mg/dL (0-40)
[2023-08-01 18:30] LABS: Direct LDL Cholesterol 111.45 mg/dL (100-129)
[2023-08-01 18:37] LABS: Free T4 (Free Thyroxine) 1.13 ng/dl (0.78-2.19)
[2023-08-01 18:39] LABS: 25-OH Vitamin D, Total 79.7 ng/mL (30-100)
[2023-08-01 18:41] LABS: Appearance,Urine CLEAR (Clear); Bilirubin,Urine Negative (Negative); Blood, Urine Negative (Negative); Color,Urine YELLOW (Yellow); Glucose,Urine (UA) Negative (Negative); Ketones,Urine Negative (Negative); Leukocyte Esterase,Urine Negative (Negative); Nitrate,Urine Negative (Negative); Protein,Urine Negative (Negative); Specific Gravity, Urine 1.025 (1.005-1.030); Urobilinogen,Urine 0.2 EU/dl (0.2)
[2023-08-01 18:50] LABS: Thyroid Stimulating Hormone 2.17 uIU/mL (0.465-4.68)
[2023-08-01 19:06] LABS: Bacteria,Urine Trace /lpf
[2023-08-01 19:25] LABS: Folate 6.48 ng/mL; Vitamin B12 326 pg/mL (239-931)
[2023-08-01 19:42] LABS: Hemoglobin A1C 5.4 % (4.0-6.0)
[2023-08-01 20:33] LABS: Iron 69 ug/dL (37-170)
[2023-08-01 20:44] LABS: Total Iron Binding Capacity 357 ug/dL (265-497)
[2023-08-01 21:08] LABS: Ferritin 24.6 ng/ml (6.24-137)
[2023-08-03 08:20] LABS: HIV Screen 4th Generation wRfx Non Reactive (Non Reactive)
[2023-08-03 11:50] LABS: Rapid Plasma Reagin Ab Titer Non Reactive titer (NonRea<1:1)
[2023-08-05 22:07] LABS: Neisseria gonorrhoeae, NAA Negative (Negative)
[2023-08-06 10:21] LABS: HSV 2 IgG, Type Spec <0.91
== END 2023-08-01 23:59 ==
LOC: LAB.DROPOF 18:14
PROVIDERS: PCP Student in an Organized Health Care Education/Training Program; Visit Provider Student in an Organized Health Care Education/Training Program
DX: E66.01 Morbid (severe) obesity due to excess calories (principal); Z68.41 Body mass index [BMI] 40.0-44.9, adult; Z11.3 Encounter for screening for infections with a predominantly sexual mode of transmission; R53.83 Other fatigue; Z13.21 Encounter for screening for nutritional disorder; Z79.899 Other long term (current) drug therapy; Z11.4 Encounter for screening for human immunodeficiency virus [HIV]
CPT/HCPCS: 80053; 80061; 81001; 82306; 82607; 82728; 82746; 83036; 83540; 83550; 84439; 84443; 85025; 86593; 86695; 86703; 86790; 87086; 87491; 87591; G0432

== ENCOUNTER 2023-08-08 13:09 | Outpatient (CLI) | payer OTHER, SELFPAY ==
--- NOTE | 2023-08-08 13:10 | MM_ITS ---
PROCEDURE INFORMATION: Exam: MG Bilateral Screening 3D Mammography Exam date and time: 08/08/2023 12:56 PM Age: 43 years old Clinical indication: Screening examination TECHNIQUE: Imaging protocol: Bilateral Screening tomosynthesis and 2D mammography including computer-aided detection (CAD) when performed. COMPARISON: No relevant prior studies available. FINDINGS: MAMMOGRAPHY: Breast composition: There are scattered areas of fibroglandular density. Mass: None. Architectural distortion: None. Calcifications: No suspicious calcifications. Asymmetric density: None. Skin thickening: None. Axillary adenopathy: None. IMPRESSION: No mammographic evidence of malignancy. Annual screening is recommended unless otherwise clinically indicated. ASSESSMENT: BI-RADS Category 1: Negative
== END 2023-08-08 23:59 ==
LOC: RAD 13:10
PROVIDERS: PCP Student in an Organized Health Care Education/Training Program; Visit Provider Student in an Organized Health Care Education/Training Program
DX: Z12.31 Encounter for screening mammogram for malignant neoplasm of breast (principal)
CPT/HCPCS: 77063; 77067

== ENCOUNTER 2023-08-27 09:45 | Outpatient (CLI) | payer OTHER, SELFPAY ==
[2023-08-27 09:58] LABS: Basophils # 0.2 K/mm3 (0-0.2); Basophils % 2.1 % (0.1-2.0); Eosinophils # 0.6 K/mm3 (0.0-0.4); Eosinophils % 5.8 % (0.1-12.0); Hematocrit 42.6 % (37.0-47.0); Hemoglobin 14.1 g/dL (12.2-16.2); Lymphocytes # 1.7 K/mm3 (0.7-4.5); Lymphocytes % 15.8 % (10-50); Mean Corpuscular Hemoglobin 29.4 pg (27.0-31.2); Mean Corpuscular Volume 89.1 fl (81-99); Monocytes # 0.5 K/mm3 (0.1-1.0); Monocytes % 4.8 % (1.7-9.3); Neutrophils # 7.9 K/mm3 (1.8-7.8); Neutrophils % 71.5 % (37.0-80.0); Platelet Count 391 K/mm3 (142-424); Red Blood Count 4.78 M/mm3 (4.20-5.40); Red Cell Distribution Width 13.7 % (11.5-17.5)
[2023-08-27 11:12] LABS: Iron 52 ug/dL (37-170)
[2023-08-27 11:22] LABS: Total Iron Binding Capacity 347 ug/dL (265-497)
[2023-08-27 11:47] LABS: Ferritin 25.2 ng/ml (6.24-137)
== END 2023-08-27 23:59 ==
LOC: LAB 09:46
PROVIDERS: PCP Student in an Organized Health Care Education/Training Program; Visit Provider Student in an Organized Health Care Education/Training Program
DX: E61.1 Iron deficiency (principal); D72.829 Elevated white blood cell count, unspecified
CPT/HCPCS: 36415; 82728; 83540; 83550; 85025

== ENCOUNTER 2023-09-20 11:23 | Outpatient (CLI) | payer OTHER, SELFPAY ==
[2023-09-20 12:37] LABS: HCG,Quantitative < 2 mIU/ml (0-5.42)
[2023-09-20 18:02] LABS: Microscopic, Urine URINE MICROSCOPIC (MICROSCOPIC)
[2023-09-20 18:42] LABS: Appearance,Urine CLEAR (Clear); Bilirubin,Urine Negative (Negative); Blood, Urine Negative (Negative); Color,Urine YELLOW (Yellow); Glucose,Urine (UA) Negative (Negative); Ketones,Urine Negative (Negative); Leukocyte Esterase,Urine TRACE (Negative); Nitrate,Urine Negative (Negative); Protein,Urine Negative (Negative); Urobilinogen,Urine 0.2 EU/dl (0.2)
[2023-09-20 19:00] LABS: Bacteria,Urine 1+ /lpf; Squamous Epithelial Cell,Urine Occasional #/hpf (0-5); WBC,Urine Occasional #/hpf (0-3)
[2023-09-21 12:15] LABS: Rapid Plasma Reagin Ab Titer Non Reactive titer (NonRea<1:1)
[2023-09-21 17:05] LABS: HIV Screen 4th Generation wRfx Non Reactive (Non Reactive)
[2023-09-25 06:41] LABS: Neisseria gonorrhoeae, NAA Negative (Negative)
[2023-09-26 08:42] LABS: HSV 2 IgG, Type Spec <0.91
== END 2023-09-20 23:59 | disposition home or self-care (01) ==
LOC: LAB 11:24
PROVIDERS: PCP Student in an Organized Health Care Education/Training Program; Visit Provider Student in an Organized Health Care Education/Training Program
DX: R10.2 Pelvic and perineal pain (principal); G89.29 Other chronic pain; B95.2 Enterococcus as the cause of diseases classified elsewhere; Z11.3 Encounter for screening for infections with a predominantly sexual mode of transmission
CPT/HCPCS: 36415; 81001; 84702; 86593; 86695; 86703; 86790; 87086; 87491; 87591; G0432

== ENCOUNTER 2023-10-04 10:54 | Outpatient (CLI) | payer OTHER, SELFPAY ==
[2023-10-04 10:58] LABS: Microscopic, Urine URINE MICROSCOPIC (MICROSCOPIC)
[2023-10-04 11:38] LABS: Appearance,Urine CLEAR (Clear); Bilirubin,Urine Negative (Negative); Blood, Urine Negative (Negative); Color,Urine YELLOW (Yellow); Glucose,Urine (UA) Negative (Negative); Ketones,Urine Negative (Negative); Leukocyte Esterase,Urine Negative (Negative); Nitrate,Urine Negative (Negative); Protein,Urine Negative (Negative); Urobilinogen,Urine 0.2 EU/dl (0.2)
[2023-10-04 11:49] LABS: Bacteria,Urine Trace /lpf; Mucus,Urine Trace /lpf; Squamous Epithelial Cell,Urine Occasional #/hpf (0-5)
[2023-10-05 08:16] LABS: HBsAg Screen Negative (Negative); HCV Ab Non Reactive (Non Reactive); Hep A Ab, IGM Negative (Negative); Hep B Core Ab, IgM Negative (Negative)
== END 2023-10-04 23:59 | disposition home or self-care (01) ==
LOC: LAB 10:55
PROVIDERS: PCP Student in an Organized Health Care Education/Training Program; Visit Provider Student in an Organized Health Care Education/Training Program
DX: R10.2 Pelvic and perineal pain (principal); G89.29 Other chronic pain; R30.0 Dysuria; N94.10 Unspecified dyspareunia; Z11.3 Encounter for screening for infections with a predominantly sexual mode of transmission
CPT/HCPCS: 36415; 80074; 81001

== ENCOUNTER 2023-11-12 09:13 | Outpatient (CLI) | payer OTHER, SELFPAY ==
[2023-11-12 10:57] LABS: Anion Gap 13.1 mEq/L (5-15); Blood Urea Nitrogen 15 mg/dl (7-17); Calcium 8.7 mg/dl (8.4-10.2); Carbon Dioxide 27 mmol/L (22.0-30.0); Chloride 102 mmol/L (98-107); Estimated Glomerular Filt Rate 92 ml/min (>60); GFR (African American) 112 ML/MIN (>60); Glucose 98 mg/dl (74-100); Potassium 4.1 mmoL/L (3.5-5.1); Sodium 138 mmol/L (136-145)
== END 2023-11-12 23:59 | disposition home or self-care (01) ==
LOC: LAB 09:14
PROVIDERS: PCP Student in an Organized Health Care Education/Training Program; Visit Provider Physician Assistant
DX: R60.9 Edema, unspecified (principal); I83.93 Asymptomatic varicose veins of bilateral lower extremities; I10 Essential (primary) hypertension; E78.2 Mixed hyperlipidemia; G47.33 Obstructive sleep apnea (adult) (pediatric); Z99.89 Dependence on other enabling machines and devices; E66.01 Morbid (severe) obesity due to excess calories; Z68.41 Body mass index [BMI] 40.0-44.9, adult; F17.219 Nicotine dependence, cigarettes, with unspecified nicotine-induced disorders
CPT/HCPCS: 36415; 80048

== ENCOUNTER 2023-12-06 11:26 | Outpatient (CLI) | payer OTHER, SELFPAY ==
[2023-12-06 11:43] LABS: Basophils # 0.1 K/mm3 (0-0.2); Basophils % 0.8 % (0.1-2.0); Eosinophils # 0.5 K/mm3 (0.0-0.4); Eosinophils % 4.7 % (0.1-12.0); Hematocrit 41.8 % (37.0-47.0); Hemoglobin 14.1 g/dL (12.2-16.2); Lymphocytes # 2.3 K/mm3 (0.7-4.5); Lymphocytes % 21.9 % (10-50); Mean Corpuscular HGB Conc 33.6 g/dL (31.8-35.4); Mean Corpuscular Hemoglobin 29.2 pg (27.0-31.2); Mean Corpuscular Volume 86.8 fl (81-99); Mean Platelet Volume 7.2 fl (7.4-10.4); Monocytes # 0.4 K/mm3 (0.1-1.0); Monocytes % 3.7 % (1.7-9.3); Neutrophils # 7.3 K/mm3 (1.8-7.8); Neutrophils % 68.9 % (37.0-80.0); Platelet Count 344 K/mm3 (142-424); Red Blood Count 4.81 M/mm3 (4.20-5.40); Red Cell Distribution Width 14.4 % (11.5-17.5); White Blood Count 10.6 K/mm3 (4.8-10.8)
[2023-12-06 12:01] LABS: Chloride 108 mmol/L (98-107); Sodium 138 mmol/L (136-145)
[2023-12-06 12:02] LABS: Potassium 4.2 mmoL/L (3.5-5.1)
[2023-12-06 12:04] LABS: Alanine Aminotransferase 16 U/L (12-78); Albumin Level 3.8 g/dl (3.5-5.0); Alkaline Phosphatase 74 U/L (38-126); Anion Gap 11.2 mEq/L (5-15); Aspartate Amino Transferase 19 U/L (14-36); Bilirubin,Total 0.6 mg/dl (0.2-1.3); Blood Urea Nitrogen 15 mg/dl (7-17); Calcium 8.6 mg/dl (8.4-10.2); Carbon Dioxide 23 mmol/L (22.0-30.0); Estimated Glomerular Filt Rate 92 ml/min (>60); GFR (African American) 112 ML/MIN (>60); Glucose 149 mg/dl (74-100); Iron 107 ug/dL (37-170)
[2023-12-06 12:05] LABS: Albumin/Globulin Ratio 1.3 (1.1-1.8); Total Protein,Serum 6.8 g/dl (6.3-8.2)
[2023-12-06 12:14] LABS: Total Iron Binding Capacity 314 ug/dL (265-497)
[2023-12-06 12:40] LABS: Ferritin 60.7 ng/ml (6.24-137)
== END 2023-12-06 23:59 | disposition home or self-care (01) ==
LOC: LAB 11:27
PROVIDERS: PCP Student in an Organized Health Care Education/Training Program; Visit Provider Student in an Organized Health Care Education/Training Program
DX: E61.1 Iron deficiency (principal)
CPT/HCPCS: 36415; 80053; 82728; 83540; 83550; 85025

== ENCOUNTER 2024-07-10 14:26 | Outpatient (CLI) | payer OTHER, SELFPAY ==
--- NOTE | 2024-07-10 14:27 | CT_ITS ---
FINAL REPORT TECHNIQUE: Thin section axial CT images of the facial bones and sinuses were obtained without contrast. Coronal and sagittal reformatted images were also obtained. This study was performed with techniques to keep radiation doses as low as reasonably achievable, (ALARA). Individualized dose reduction techniques using automated exposure control or adjustment of mA and/or kV according to the patient''''s size were employed. CLINICAL HISTORY: chronic sinusitis/ previous sinus sx COMPARISON: None FINDINGS: There is no evidence of mucosal thickening. No fluid levels are identified. The ostiomeatal units have an unremarkable appearance. The nasal septum is deviated to the right up to 4 mm. No fracture or acute bony abnormality is identified. IMPRESSION: No active sinusitis is identified. There is right septal deviation up to 4 mm. Reviewed, Interpreted and Dictated by Rose Guallpa MD Transcribed by Jeni Mcleod Authenticated and [facility]
== END 2024-07-10 23:59 | disposition home or self-care (01) ==
LOC: RAD 14:27
PROVIDERS: PCP Student in an Organized Health Care Education/Training Program; Visit Provider Nurse Practitioner
DX: J34.89 Other specified disorders of nose and nasal sinuses (principal)
CPT/HCPCS: 70486

== ENCOUNTER 2024-08-25 08:37 | Outpatient (CLI) | payer OTHER, SELFPAY ==
--- NOTE | 2024-08-25 08:41 | XR_ITS ---
FINAL REPORT CLINICAL HISTORY: left wrist pain, nki COMPARISON: None FINDINGS: AP, oblique, and lateral views of the left wrist were obtained. There is no prior exam for comparison. There is no acute fracture or dislocation. The joint spaces are preserved. The soft tissues are normal. IMPRESSION: No acute osseous abnormality of the left wrist. If pain persists, MR is recommended. Reviewed, Interpreted and Dictated by Vibha Wild MD Transcribed by Jeni Mcleod Authenticated and [facility]
--- NOTE | 2024-08-25 08:41 | XR_ITS ---
FINAL REPORT CLINICAL HISTORY: right wrist pain, nki COMPARISON: None FINDINGS: AP, oblique, and lateral views of the right wrist were obtained. There is no prior exam for comparison. There is no acute fracture or dislocation. The joint spaces are preserved. The soft tissues are normal. IMPRESSION: No acute osseous abnormality of the right wrist. If pain persists, MR is recommended. Reviewed, Interpreted and Dictated by Vibha Wild MD Transcribed by Jeni Mcleod Authenticated and [facility]
== END 2024-08-25 23:59 | disposition home or self-care (01) ==
LOC: RAD 08:38
PROVIDERS: Visit Provider Physician Assistant
DX: M25.531 Pain in right wrist (principal); M25.532 Pain in left wrist
CPT/HCPCS: 73110

== ENCOUNTER 2024-09-11 10:21 | Outpatient (CLI) | payer OTHER, SELFPAY ==
[2024-09-11 10:42] VITALS: BMI 45.8
[2024-09-11 10:49] LABS: Basophils # 0.1 K/mm3 (0-0.2); Basophils % 0.5 % (0.1-2.0); Eosinophils # 0.6 K/mm3 (0.0-0.4); Eosinophils % 5.7 % (0.1-12.0); Hematocrit 37.5 % (37.0-47.0); Hemoglobin 12.6 g/dL (12.2-16.2); Lymphocytes # 2.5 K/mm3 (0.7-4.5); Lymphocytes % 22.4 % (10-50); Mean Corpuscular HGB Conc 33.6 g/dL (31.8-35.4); Mean Corpuscular Volume 83.3 fl (81-99); Mean Platelet Volume 8.9 fl (7.4-10.4); Monocytes # 0.7 K/mm3 (0.1-1.0); Monocytes % 6.6 % (1.7-9.3); Neutrophils # 7.1 K/mm3 (1.8-7.8); Neutrophils % 64.4 % (37.0-80.0); Nucleated Red Blood Cells # 0 10^3/uL; Nucleated Red Blood Cells % 0 %; Platelet Count 319 K/mm3 (142-424); Red Cell Distribution Width 13.8 % (11.5-17.5); Red Cell Distribution Width-SD 42.2 fL; White Blood Count 11.1 K/mm3 (4.8-10.8)
[2024-09-11 11:04] LABS: Chloride 103 mmol/L (98-107); Potassium 3.8 mmoL/L (3.5-5.1); Sodium 137 mmol/L (136-145)
[2024-09-11 11:07] LABS: Anion Gap 11.8 mEq/L (5-15); Blood Urea Nitrogen 17 mg/dl (7-17); Carbon Dioxide 26 mmol/L (22.0-30.0); Creatinine Clearance Estimated 89 mL/min (50-200); Estimated Glomerular Filt Rate 79 ml/min (>60); GFR (African American) 95 ML/MIN (>60); Glucose 113 mg/dl (74-100)
[2024-09-11 11:08] LABS: Calcium 8.8 mg/dl (8.4-10.2)
== END 2024-09-11 23:59 | disposition home or self-care (01) ==
LOC: PREOP 10:22
PROVIDERS: Nurse Anesthetist, Certified Registered; Visit Provider Orthopaedic Surgery
DX: Z01.812 Encounter for preprocedural laboratory examination (principal)
CPT/HCPCS: 80048; 85025

== ENCOUNTER 2024-09-21 06:59 | Day surgery (SDC) | payer OTHER, SELFPAY ==
[2024-09-21 07:10] VITALS: BMI 45.8
[2024-09-21] MEDS: LACTATED RINGERS 1000ML 1,000 ML 25 ML IV (07:15)
[2024-09-21 07:20] VITALS: BP 137/83; PULSE 90; RESP 18; TEMP 36.4; O2SAT 95
--- NOTE | 2024-09-21 08:10 | EXP.ANES.CKL ---
[facility] Disclaimer: The information contained in this section may have been updated after the patient was seen, as this information can be updated by other users. Medical History Asthma HTN (hypertension) Deviated nasal septum Sinus pressure Sinus pain Varicose veins of both lower extremities Edema Morbid obesity with BMI of 40.0-44.9, adult Chronic pelvic pain in female Ovarian cyst HENNA on CPAP Tobacco dependence syndrome Fatigue Dyspnea on exertion Surgical History Hx of wisdom tooth extraction Hx of laser assisted in situ keratomileusis Hx of sinus surgery Family History Father Diabetes Other Heart attack Social History Smoking Status: Current every day smoker tobacco type: cigarettes packs per day: 1 alcohol intake: never counseling provided: none substance use type: denies use current occupational status: employed Travel in the last 8 weeks: None household members: other housing: house Have you lived/traveled outside US in past 30 days?: No Contact w/someone who lives/traveled outside US past 30 days?: No Exposure to someone with infectious disease in past 14 days?: No Do you have a fever (greater than 100.4 F or 38 C)?: No Have you tested positive for COVID-19: No Exposed to someone with COVID-19 in past 14 days?: No Do you have a sore throat?: No Do you have a cough?: No Do you have any weakness?: No Do you have any diarrhea?: No Are you experiencing any unusual bleeding?: No Do you have any muscle aches/pain?: No Do you have any abdominal pain?: No Are you experiencing loss of taste or smell?: No [facility] Anesthesia Checklist Patient Identification Patient Identification: Verbal (Name & ) Structural Data Admitted From: Home Planned Operative Procedure/s: r carpal tunnel release Consent for Planned Operative Procedure(s) Verified: Yes NPO Status Verified Time NPO: 00:00 Additional verifications Anesthesia Reactions: No Hx Blood Transfusions: No Blood Transfusion Reaction: No Airway Assessment Mallampati Score:: Class II C-Spine Mobility Assessed: Yes TMJ Mobility Assessed: Yes Dentition: Good Dentition Neurological Assessment Level of Consciousness: Awake, Alert and Appropriate Anesthesia Plan Anesthesia Risk discussed: Yes Anesthesia Plan: Verified ASA Class: II Anesthesia Type: MAC
[2024-09-21] MEDS: LIDOCAINE 1% W/EPI 1:100,000 20ML VIAL 20 ML (08:52)
[2024-09-21] MEDS: CLINDAMYCIN PHOSPHATE/D5W 900 MG/50 ML PIGGYBACK 100 MG IV (08:53)
--- NOTE | 2024-09-21 09:00 | P.OP_ITS ---
Date of procedure: 09/21/24 Pre-op Diagnosis:: Right carpal tunnel syndrome Post-op Diagnosis:: Same Procedure performed:: Right endoscopic carpal tunnel release Surgeon:: Alex Tam DO Anesthesia: GETSaul Estimated blood loss (mL): 0 Operative findings:: See dictation Operative note:: Patient notified preoperatively. Right wrist marked with yes my initials. Transferred operative suite placed upon operating bed. Patient sedated right u pper extremity prepped and draped normal sterile fashion. Once prepped and draped final operative timeout performed to identify proper patient procedure and extremity. Everyone involved in case agreed. Is no counter indications to beginning. Did receive preoperative antibiotics clindamycin. Marking pen was used to make planned incision over the volar wrist crease Esmarch was used to exsanguinate extremity pneumatic tourniquet inflated to 250 mmHg. Local anesthesia was infiltrated to the incision site skin knife is used to incise the skin retractors placed dissection is taken down to identify the most proximal aspect the transverse carpal ligament once identified the small dilator followed by the larger dilator was placed followed by the 4.0 mm sled into the carpal tunnel. Camera was then placed. The transverse carpal ligament clearly seen superiorly within the wound. The endoscopic hook was utilized to identify the most distal aspect the transverse carpal ligament soft tissue rasp was used to remove soft tissue followed by the curved blade from the [employer] endoscopic carpal tunnel set were incision of the transverse carpal ligament was performed under direct visualization. This gave good release of the carpal tunnel. Irrigation of the wound performed. Wound closed with 4-0 Monocryl stitches and Steri-Strips hand dressing placed patient waken anesthesia taken recovery in stable condition. Condition: stable Disposition: PACU Complications:: None apparent
[2024-09-21 09:08] VITALS: BP 93/48; PULSE 80; RESP 16; TEMP 36.6; O2SAT 96
[2024-09-21 09:18] VITALS: BP 98/53; PULSE 76; RESP 16; O2SAT 98
[2024-09-21 09:28] VITALS: BP 96/54; PULSE 75; RESP 16; O2SAT 98
[2024-09-21] MEDS: diphenhydrAMINE 25MG CAPSULE 25 MG PO (09:30)
[2024-09-21 09:38] VITALS: BP 103/60; PULSE 76; RESP 16; O2SAT 98
--- NOTE | 2024-09-21 10:57 | SUR.PHASEII ---
0930: Dr. Tam at bedside to assess bruising and irritation behind right elbow. Per Dr. Tam, benadryl po ordered for possible adhesive allergy. Will continue to monitor. 0943: Pt dressed for discharge. Redness and bruising of right elbow still visible. Instructed pt to call if it gets worse or spreads when she gets home. Will call pt for postop f/u tomorrow.
== END 2024-09-21 09:43 | disposition home or self-care (01) ==
PROVIDERS: PCP Internal Medicine; Visit Provider Orthopaedic Surgery
PROC: (CPT 64721; principal; 2024-09-21 08:45)
DX: G56.01 Carpal tunnel syndrome, right upper limb (principal)
CPT/HCPCS: 29848; 96374; J0736; J1100; J2250; J2405; J3010; J7120

== ENCOUNTER 2025-01-01 14:21 | Outpatient (CLI) | payer OTHER, SELFPAY ==
--- OUTSIDE RECORDS SUMMARY | 2024-11-13 11:15 | XMS_ITS | Encounter Summary ---
Author Organization [facility] Address [address] [place] [address] Care Team Providers Care Mechanical Engineering Intern Name Role Phone Grabiel Arenas DO Primary Care Provider [phone] Reason for Visit * Reason Comments Pre-op Exam Pre op Patient doing well Encounter Details Date Type Department Care Team (Late st Contact Info) Description 11/13/2024 11:15 AM EDT Office Visit Obstetrics & Gynecology [address] [place] [address] Cornel Dasilva MD [address] [place] [address] Irregular menstruation, unspecified (Primary Dx); Chronic pelvic pain in female Social History Tobacco Use Types Packs/Day Years Used Date Smoking Tobacco: Every Day Cigarettes 0.5 10 Started: 2013 Smokeless Tobacco: Never Alcohol Use Standard Drinks/Week Comments Not Currently 0 (1 standard drink = 0.6 oz pur e alcohol) PHQ-2 Answer Date Recorded Patient Health Questionnaire-2 Score 0 11/13/2024 PHQ-9 Answer Date Recorded Patient Health Questionnaire-9 Score 0 11/13/2024 Comments No Sex and Gender Information Value Date Recorded Sex Assigned at Female 03/15/2023 3:46 PM EDT Legal Sex Female 3:38 PM EDT Gender Identity Female 03/15/2023 3:46 PM EDT Sexual Orientation Not on file documented as of this encounter Last Filed Vital Signs Vital Sign Reading Time Taken Comments Blood Pressure 131/83 11/13/2024 10:31 AM EDT Pulse - - Temperature 36.8 C (98.3 F) 11/13/2024 10:31 AM EDT Respiratory Rate - - Oxygen Saturation 98% 11/13/2024 10:31 AM EDT Inhaled Oxygen Concentration - - Weight 139 kg (306 lb 7 oz) 11/13/2024 10:31 AM EDT Height - - Body Mass Index 48 10/01/2024 10:08 AM EDT documented in this encounter Functional Status * Over the past 2 weeks, how often have you been bothered by any of the following problems? Question Answer Date of Assessment Author Little interest or pleasure in doing things Not at all 11/13/2024 10:31 AM Saba Andrew Feeling down, depressed, or hopeless Not at all 11/13/2024 10:31 AM Saba Andrew Patient Health Questionnaire -2 Score 0 11/13/2024 10:31 AM Saba Andrew * Question Answer Date of Assessment Author Trouble falling or staying asleep, or sleeping too much Not at all 11/13/2024 10:31 AM Saba Andrew Feeling tired or having chris le energy Not at all 11/13/2024 10:31 AM Saba Andrew Poor appetite or overeating Not at all 11/13/2024 10 :31 AM Saba Andrew Feeling bad about yourself - or that you are a failure or have let yourself or your family down Not at all 11/13/2024 10:31 AM Saba Hobson Trouble concentrating on thi ngs, such as reading the newspaper or watching television Not at all 11/13/2024 10:31 AM Saba Andrew Moving or speaking so slowly that other people could have noticed? Or the opposite - being so fidgety or restless that you have been moving around a lot more than usual. Not at all 11/13/2024 10:31 AM Saba Andrew Thoughts that you would be b joaquin off or hurting yourself in some way Not at all 11/13/2024 10:31 AM Saba Andrew Patient Health Questionnaire -9 Score 0 11/13/2024 10:31 AM EDT Saba Evans * If you checked off any problems on this questionnaire so far, Question Answer Date of Assessment Author How difficult have these problems made it for you to do your work, take care of things at home, or get along with other people? Not difficult at all 11/13/2024 10:31 AM EDT Saba Evans documented as of this encounter Miscellaneous Notes * Progress Notes - Cornel Dasilva MD - 11/13/2024 11:15 AM EDT Gynecology Progress Note Subjective Gabriella Hsieh is a 43 y.o. 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 HPI per AIRCRAFT SEAT UPHOLSTERER: H/O irregular menses. States was set for explore laparoscopy with previous LAP CHECKER provider but multiple LAP CHECKER US were performed instead. States US showed ovarian cysts , but otherwise WNL. Most recently states she bled from September to November constantly in some amount. Typically wears pads-changing 3x/day. She stopped bleeding for 5 days and then had another 4 day menstrual bleed at end of November. Denies PCOS/Endometriosis history. ?? NOW taking Slynd - stopped 09/11/2024 - has not taken it in several weeks bc not helping control herheavy vaginal bleeding.She reports that following initiation of medication she had brief several month improvement in bleeding profile but states it has been several months since medication has worked to help control symptoms. She will have VB x 2-3 m continuously. This gretlty affects her life. Previous LAP CHECKER US on 01/10/24 was WNL. Has been bleeding on and off since 08/09/24. Desires definitive surgical management. ?? LMP: 08/09/24 Cycles: irregular Contraception: N/a Pap: 12/13/2023 wnl w/neg HPV Family hx: paternal aunts- breast cancer Cigarette smoking CBC + Thyroids OK LAP CHECKER TVUS OK. EMBX OK. TX options discussed - desires TLH/BS. All questions asked & answered to her satisfaction - desires to proceed - understands r/b/a. Review of Systems Constitutional: Negative. HENT: Negative. Eyes: Negative. Respiratory: Negative. Cardiovascular: Negative. Gastrointestinal: Negative. Endocrine: Negative. Genitourinary: Positive for menstrual problem. Musculoskeletal: Negative. Skin: Negative. Allergic/Immunologic: Negative. Neurological: Negative. Hematological: Negative. Psychiatric/Behavioral: Negative. Objective Visit Vitals BP 131/83 Temp 36.8 ??C (98.3 ??F) Physical Exam Constitutional: Appearance: Normal appearance. HENT: Head: Normocephalic and atraumatic. Right Ear: External ear normal. Left Ear: External ear normal. Cardiovascular: Rate and Rhythm: Normal rate and regular rhythm. Heart sounds: Normal heart sounds. Pulmonary: Effort: Pulmonary effort is normal. Breath sounds: Normal breath sounds. Musculoskeletal: General: Normal range of motion. Cervical back: Normal range of motion. Neurological: General: No focal deficit present. Mental Status: She is alert and oriented to person, place, and time. Skin: General: Skin is warm and dry. Psychiatric: Mood and Affect: Mood normal. Behavior: Behavior normal. Thought Content: Thought content normal. Judgment: Judgment normal. Vitals and nursing note reviewed. Assessment/Plan Assess/Plan SmartLinks: Diagnoses and all orders for this visit: Irregular menstruation, unspecified Chronic pelvic pain in female Consented for TLH/BS For preop at [facility] Voices agreement A total of 20 minutes was spent on this visit with at least more than 50% of the encounter spent incounseling and/or coordinating care including reviewing previous notes, counseling the patient on their identified issues as indicated in the note, discussing previous and/or ordered tests or imaging, prescribing/refilling medications, and documenting the findings in this note, as well as laying out a specific plan of action for this patient. documented in this encounter Plan of Treatment Upcoming Encounters Date Type Department Care Team (Late st Contact Info) Description 12/22/2025 8:45 AM EDT Procedure Visit Obstetrics & Gynecology [address] [place] [address] Cornel Dasilva MD [address] [place] [address] documented as of this encounter Visit Diagnoses Diagnosis Irregular menstruation, unspecified- Primary Chronic pelvic pain in female Unspecified symptom associated with female genital organs documented in this encounter Additional Health Concerns Assessment Noted Time PHQ-9 Depression Total Score: 0 11/14/19 10:31 AM EDT A fall risk assessment has been complete d for the patient 11/13/2024 10:31 AM EDT A Body Mass Index follow-up plan has been documented for the patient 11/13/2024 10:47 AM EDT documented as of this encounter Care Teams Mechanical Engineering Intern Relationship Specialty Start Date End Date Grabiel Arenas DO [address] [place] [address] [place] [id number] PCP - General 11/07/24 documented as of this encounter
--- OUTSIDE RECORDS SUMMARY | 2024-12-17 09:00 | XMS_ITS | Encounter Summary ---
Author Organization Healthcare Address [address] [id number] Care Team Providers Care Funeral Workers Name Role Phone Grabiel Arenas DO Primary Care Provider [phone] Reason for Visit * Reason Comments Post-op 4wk post op TLH/BSNo SS of infectionFeels like she is straining when she finishes urinating Has random pains on abdomen that feels like sharp and throbbing Encounter Details Date Type Department Care Team (Late st Contact Info) Description 12/17/2024 9:00 AM EDT Office Visit Obstetrics & Gynecology [address] [place] [address] Cornel Dasilva MD [address] [place] [address] Status post surgery (Primary Dx); Acute cystitis with hematuria; Encounter for screening mammogram for malignant neoplasm of breast Social History Tobacco Use Types Packs/Day Years Used Date Smoking Tobacco: Every Day Cigarettes 0.5 10 Started: 2013 Smokeless Tobacco: Never Alcohol Use Standard Drinks/Week Comments Not Currently 0 (1 standard drink = 0.6 oz pur e alcohol) PHQ-2 Answer Date Recorded Patient Health Questionnaire-2 Score 0 12/17/2024 PHQ-9 Answer Date Recorded Patient Health Questionnaire-9 Score 0 11/13/2024 Comments No Sex and Gender Information Value Date Recorded Sex Assigned at Female 03/15/2023 3:46 PM EDT Legal Sex Female 3:38 PM EDT Gender Identity Female 03/15/2023 3:46 PM EDT Sexual Orientation Not on file documented as of this encounter Last Filed Vital Signs Vital Sign Reading Time Taken Comments Blood Pressure 126/84 12/17/2024 8:58 AM EDT Pulse 91 12/17/2024 8:58 AM EDT Temperature 36.8 C (98.2 F) 12/17/2024 8:58 AM EDT Respiratory Rate - - Oxygen Saturation 97% 12/17/2024 8:58 AM EDT Inhaled Oxygen Concentration - - Weight 140 kg (309 lb 1.4 oz) 12/17/2024 8:58 AM EDT Height 170.2 cm (5' 7 ) 12/17/2024 8:58 AM EDT Body Mass Index 48.41 12/17/2024 8:58 AM EDT documented in this encounter Functional Status * Over the past 2 weeks, how often have you been bothered by any of the following problems? Question Answer Date of Assessment Author Little interest or pleasure in doing things Not at all 12/17/2024 8:59 AM EDT Eleni Fernandez RN Feeling down, depressed, or hopeless Not at all 12/17/2024 8:59 AM EDT Eleni Fernandez RN Patient Health Questionnaire -2 Score 0 12/17/2024 8:59 AM EDT Eleni Fernandez RN documented as of this encounter Miscellaneous Notes * Progress Notes - Cornel Dasilva MD - 12/17/2024 9:00 AM EDT Gynecology Progress Note Subjective Gabriella Hsieh is a 43 y.o. 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 [facility] was set for explore laparoscopy with previous DIE CUT OPERATOR provider but multiple DIE CUT OPERATOR US were performed instead. [facility] US showed ovarian cysts , but otherwise WNL. Most recently [facility] she bled from September to November constantly in some amount. Typically wears pads-changing 3x/day. She stopped bleeding for 5 days and then had another 4 day menstrual bleed at end of November. Denies PCOS/Endometriosis history. NOW taking Slynd - stopped 09/11/2024 - [...] continuously. This gretlty affects her life. Previous DIE CUT OPERATOR US on 01/10/24 was WNL. Has been bleeding on and off since 08/09/24. Desires definitive surgical management. LMP: 08/09/24 Cycles: irregular Contraception: N/a Pap: 12/13/2023 wnl w/neg HPV Family hx: paternal aunts- breast cancer Cigarette smoking CBC + Thyroids OK DIE CUT OPERATOR TVUS OK. EMBX OK. 4 weeks s/p TLH/BS. Straining with urination at the end of the stream. Review of Systems Constitutional: Negative. HENT: Negative. Eyes: Negative. Respiratory: Negative. Cardiovascular: Negative. Gastrointestinal: Negative. Endocrine: Negative. Genitourinary: Positive for dysuria. Musculoskeletal: Negative. Skin: Negative. Allergic/Immunologic: Negative. Neurological: Negative. Hematological: Negative. Psychiatric/Behavioral: Negative. Objective Visit Vitals BP 126/84 Pulse 91 Temp 36.8 ??C (98.2 ??F) Physical Exam Constitutional: Appearance: Normal appearance. HENT: Head: Normocephalic and atraumatic. Right Ear: External ear normal. Left Ear: External ear normal. Pulmonary: Effort: Pulmonary effort is normal. Abdominal: General: Abdomen is flat. Palpations: Abdomen is soft. Comments: INCS healing well Musculoskeletal: General: Normal range of motion. Cervical back: Normal range of motion. Neurological: General: No focal deficit present. Mental Status: She is alert and oriented to person, place, and time. Skin: General: Skin is warm and dry. Psychiatric: Mood and Affect: Mood normal. Behavior: Behavior normal. Thought Content: Thought content normal. Judgment: Judgment normal. Vitals and nursing note reviewed. UA with LE & blood Assessment/Plan Assess/Plan SmartLinks: Diagnoses and all orders for this visit: Status post surgery - POCT Urinalysis Dipstick - Urine Culture Acute cystitis with hematuria - nitrofurantoin, macrocrystal-monohydrate, (Macrobid) 100 MG capsule; Take 1 capsule by mouth 2 times a day for 10 days. Encounter for screening mammogram for malignant neoplasm of breast - Mammography Breast Screening Tomosynthesis Bilateral; Future Discussed UA - suspect UTI - RX Macrobid, Hydrate, Cranberry - Check UCX PATH B9 - reviewed RX MMG - sent to [facility] [employer] 1 year Voices agreement A total of 24 minutes was spent on this visit with [...] EDT Procedure Visit Obstetrics & Gynecology [address] [place] [address] Cornel Dasilva MD [address] [place] [address] Scheduled Orders Name Type Priority Associated Diagnoses Orde r Schedule Mammography Breast Screening Tomosynthesis Bilateral Imaging Routine Encounter for screening mammogram for malignant neoplasm of breast Expected: 12/17/2024 (Approximate), Expires: 06/20/2026 documented as of this encounter Procedures Procedure Name Priority Date/Time Associated Diagnosis Comments URINE CULTURE Routine 12/17/2024 9:07 AM EDT Status post surgery POCT URINALYSIS DIPSTICK Routine 12/17/2024 9:06 AM EDT Status post surgery documented in this encounter Results * Urine Culture (12/17/2024 9:07 AM EDT) Culture <10,000 CFU/mL Mixed urogenital, fecal, or skin regla present. 12/18/2024 10:32 AM EDT [facility] Urine Urine specimen obtained by clean catch procedure / Unknown Non-blood Collection / Unknown 12/17/2024 9:07 AM EDT 12/17/2024 12:34 PM EDT Result Jarad Dasilva MD LAB MICROBIOLOGY - GENERAL ORDChris SANTOS Final Result [facility] [address] [place] [address] * (ABNORMAL) POCT Urinalysis Dipstick (12/17/2024 9:06 AM EDT) POCT Urine Color Yellow POCT Urine Clarity Clear POCT Glucose Urine Negative Negative mg/dL POCT Bilirubin, Urine Negative Negative POCT Ketones, Urine Negative Negative mg/dL POCT Specific Shirley, Urine 1.020 POCT Blood, Urine Trace(A) Negative POCT pH, Urine 5.5 5.0 to 8.0 POCT Protein, Urine Negative Negative mg/dL POCT Urobilinogen, Urine 0.2 0.2, 1 E.U./dL POCT Nitrite, Urine Negative Negative POCT Leukocyte Esterase, Urine Trace(A) Negative Test Strip Lot Number [id number] Test Strip Lot Expiration 08/31/25 Urine Urine specimen obtained by clean catch procedure / Unknown 12/17/2024 9:06 AM EDT Result Jarad Dasilva MD POINT OF CARE TEST ENTER/EDIT O RDERABLES Final Result documented in this encounter Visit Diagnoses Diagnosis Status post surgery- Primary Acute cystitis with hematuria Encounter for screening mammogram for malignant neoplasm of breast documented in this encounter Additional Health Concerns Assessment Noted Time PHQ-9 Depression Total Score: 0 11/14/19 25 10:31 AM EDT A fall risk assessment has been complete d for the patient 12/17/2024 8:59 AM EDT A Body Mass Index follow-up plan has been documented for the patient 12/17/2024 9:24 AM EDT documented as of this encounter Care Teams Funeral Workers Relationship Specialty Start Date End Date Grabiel Arenas DO [address] [place] [facility] [address] [address] PCP - General 11/07/24 documented as of this encounter
--- OUTSIDE RECORDS SUMMARY | 2025-01-01 14:23 | XMS_ITS | Encounter Summary ---
Author Organization Healthcare Address [address] [id number] Care Team Providers Care Ammonium Nitrate Neutralizer Name Role Phone Deyvi Arellano MD Primary Care Provider [phone] Grabiel Arenas DO Primary Care Provider Encounter Details Date Type Department Care Team (Late st Contact Info) Description 09/27/2024 Results Follow-Up Obstetrics & Gynecology [address] [place] [address] Cornel Dasilva MD [address] [place] [address] Social History Tobacco Use Types Packs/Day Years [...] on file documented as of this encounter Functional Status * Over the [...] Questionnaire -9 Score 0 11/13/2024 10:31 AM Saba Andrew * If you checked off any problems on this questionnaire so far, Question Answer Date of Assessment Author How difficult have these problems made it for you to do your work, take care of things at home, or get along with other people? Not difficult at all 11/13/2024 10:31 AM Saba Andrew documented as of this encounter Plan of Treatment Upcoming Encounters Date Type Department Care Team (Late st Contact Info) Description 12/22/2025 8:45 AM EDT Procedure Visit Obstetrics & Gynecology [address] [place] [address] Cornel Dasilva MD [address] [place] [address] documented as of this encounter Visit Diagnoses Not on filedocumented in this encounter Additional Health Concerns Assessment Noted Time PHQ-9 Depression Total Score: 0 09/26/19 1:06 PM EDT A fall risk assessment has been complete d for the patient 09/25/2024 1:06 PM EDT A Body Mass Index follow-up plan has been documented for the patient 09/25/2024 2:19 PM EDT documented as of this encounter Care Teams Ammonium Nitrate Neutralizer Relationship Specialty Start Date End Date Deyvi Arellano MD [address] [place] [address] PCP - General 12/13/23 11/06/24 Grabiel Arenas DO [address] [facility] [address] [place] [address] PCP - General 11/07/24 documented as of this encounter
--- OUTSIDE RECORDS SUMMARY | 2025-01-01 14:23 | XMS_ITS | Encounter Summary ---
Author Organization Healthcare Address [address] [place] [address] Care Team Providers Care Sidewalk Inspector Name Role Phone Deyvi Arellano MD Primary Care Provider [phone] Encounter Details Date Type Department Care Team (Late st Contact Info) Description 11/06/2024 Telephone Obstetrics & Gynecology [address] [place] [address] Cornel Dasilva MD [address] [place] [address] Social History Tobacco Use Types Packs/Day Years Used Date Smoking Tobacco: Every Day Cigarettes 0.5 10 Started: 2013 Smokeless Tobacco: Never Alcohol Use Standard Drinks/Week Comments Not Currently 0 (1 standard drink = 0.6 oz pur e alcohol) PHQ-2 Answer Date Recorded Patient Health Questionnaire-2 Score 0 10/01/2024 PHQ-9 Answer Date Recorded Patient Health Questionnaire-9 Score 0 10/01/2024 Comments No Sex and Gender Information Value Date Recorded Sex Assigned at Female 03/15/2023 3:46 PM EDT Legal Sex Female 3:38 PM EDT Gender Identity Female 03/15/2023 3:46 PM EDT Sexual Orientation Not on file documented as of this encounter Miscellaneous Notes * Telephone Encounter - Eleni Fernandez RN - 11/06/2024 3:36 PM EDT RN explained pt can bring short term disability paperwork to clinic and Sheri will fill it out. RN explained we recommend telling their work it can take 10-14 business days for it to be filled out.Pt expressed understanding and states she will bring it Thursday 11/09. * Telephone Encounter - Ailin Akhtar - 11/06/2024 3:29 PM EDT Clinical Concern/Question Reason for Call: Pt is wondering about filling out short term disability paperwork for her surgery.Please call. Best contact number: [phone] (home) Optimal time of day to reach caller: ANYTIME Additional comments/information from caller: Not Applicable Note: Please do not reply to this message. Follow-up communication and further actions as a result of this message need to be communicated with the patient directly, if the patient is not active onMyChart. If the patient is active on MyChart, they will receive notification of the communication/outcome via EverTunehart. documented in this encounter Plan of Treatment Upcoming Encounters Date Type Department Care Team (Late st Contact Info) Description 12/22/2025 8:45 AM EDT Procedure Visit Obstetrics & Gynecology [address] [place] [address] Cornel Dasilva MD [address] [place] [address] documented as of this encounter Visit Diagnoses Not on filedocumented in this encounter Additional Health Concerns Assessment Noted Time PHQ-9 Depression Total Score: 0 10/02/19 25 10:11 AM EDT A fall risk assessment has been complete d for the patient 10/01/2024 10:11 AM EDT A Body Mass Index follow-up plan has been documented for the patient 10/01/2024 11:41 AM EDT documented as of this encounter Care Teams Sidewalk Inspector Relationship Specialty Start Date End Date Deyvi Arellano MD [address] [facility] [place] [address] PCP - General 12/13/23 11/06/24 documented as of this encounter
--- OUTSIDE RECORDS SUMMARY | 2025-01-01 14:23 | XMS_ITS | Encounter Summary ---
Author Organization Healthcare Address [address] [id number] Care Team Providers Care Pattern Painter Name Role Phone Grabiel Arenas DO Primary Care Provider [phone] Encounter Details Date Type Department Care Team (Late st Contact Info) Description 11/09/2024 Telephone Obstetrics & Gynecology [address] [place] [address] Gina Lo, ALMOND ROASTER, CN [address] [facility] [address] [place] [address] Social History Tobacco Use Types [...] encounter Miscellaneous Notes * Telephone Encounter - Oanh Olivier - 11/09/2024 1:36 PM EDT Lm on vm and mchart to advise appt changed from 12/18 w/ [facility] 12[facility]21 w/ [facility] documented in this encounter Plan of Treatment Upcoming Encounters Date Type Department Care Team (Late st Contact Info) Description 12/22/2025 8:45 AM EDT Procedure Visit Obstetrics & Gynecology [address] [place] [address] Cornel Dasilva MD [address] [place] [address] documented as of this encounter Visit Diagnoses Not on filedocumented in this encounter Additional Health Concerns Assessment Noted Time PHQ-9 Depression Total Score: 0 10/02/19 10:11 AM EDT A fall risk assessment has been complete d for the patient 10/01/2024 10:11 AM EDT A Body Mass Index follow-up plan has been documented for the patient 10/01/2024 11:41 AM EDT documented as of this encounter Care Teams Pattern Painter Relationship Specialty Start Date End Date Grabiel Arenas DO [address] [place] [address] [place] [address] PCP - General 11/07/24 documented as of this encounter
--- OUTSIDE RECORDS SUMMARY | 2025-01-01 14:23 | XMS_ITS | Encounter Summary ---
Author Organization [facility] Address [address] [place] [address] Care Team Providers Care Loading Machine Adjuster Name Role Phone Grabiel Arenas DO Primary Care Provider [phone] Encounter Details Date Type Department Care Team (Latest Contact Info) Description 12/15/2024 Travel Social History Tobacco Use Types Packs/Day Years [...] on file documented as of this encounter Plan of Treatment Upcoming Encounters Date Type Department Care Team (Late st Contact Info) Description 12/22/2025 8:45 AM EDT Procedure Visit Obstetrics & Gynecology [address] [place] [address] Cornel Dasilva MD [address] [place] [address] documented as of this encounter [...] documented as of this encounter Care Teams Loading Machine Adjuster Relationship Specialty Start Date End Date Grabiel Arenas DO [address] [place] [address] [place] [address] PCP - General 11/07/24 documented as of this encounter
--- OUTSIDE RECORDS SUMMARY | 2025-01-01 14:23 | XMS_ITS | Clinical Summary ---
Author Organization [facility] Address [address] [place] [address] Care Team Providers Care Field Crop Farmworker Name Role Phone Grabiel Arenas DO Primary Care Provider [phone] Allergies Active Allergy Reactions Criticality Noted Date Comments Crab (Diagnostic) Itching Medium 11/28/2023 Penicillins Unknown - Patient st ates they do not know rxn details Low 11/28/2023 Wasp Venom Hives,Rash Medium 12/17/2024 welps Medications albuterol 108 (90 Base) MCG/ACT inhaler 2 puffs. 03/15/2023 Act kulwant EPINEPHrine (Epipen) 0.3 MG/0.3ML injection syringe 0.3 mL (0.3 mg). 03/15/2023 Active cholecalciferol (D3 5000) 125 MCG (5000 UT) capsule Take 1 capsule (5,000 Units) by mouth 1 (one) time each day. Active fluticasone (Flonase) 50 MCG/ACT nasal spray 1 spray. 03/15/2023 Active hydroCHLOROthia zide (HYDRODiuril) 12.5 MG tablet 1 tablet (12.5 mg). 11/04/2023 Active metoprolol succinate XL (Toprol-XL) 25 MG 24 hr tablet 1 tablet (25 mg). 11/04/2023 Active montelukast (Singulair) 10 MG tablet 1 tablet (10 mg). 08/01/2023 Active valACYclovir (Valtrex) 1 g tablet Take 1 tablet (1,000 mg) by mouth if needed. 09/23/2023 Active cetirizine (ZyrTEC) 10 MG tablet Take 1 tablet by mouth daily. 08/25/2024 Active losartan (Cozaar) 50 MG tablet Take 1 tablet by mouth daily. Active nitrofurantoin, macrocrystal-mo nohydrate, (Macrobid) 100 MG capsuleIndicati ons:Acute cystitis with hematuria Take 1 capsule by mouth 2 times a day for 10 days. 20 capsule 12/17/2024 12/28/19 Active Problems Problem Noted Date Diagnosed Date Chronic pelvic pain in female 12/13/2023 DUB (dysfunctional uterine bleeding) 12/13/2023 Dyspnea on exertion 12/13/2023 Edema 12/13/2023 Enlarged uterus 12/13/2023 HLD (hyperlipidemia) 12/13/2023 Essential hypertension 12/13/2023 Left leg cellulitis 12/13/2023 HENNA on CPAP 12/13/2023 Ovarian cyst 12/13/2023 Tobacco dependence syndrome 12/13/2023 Class III obesity with body mass index (BMI) of 40.0 or higher 12/13/2023 Encounters Date Type Department Care Team Description 12/17/2024 9:00 AM EDT Office Visit Obstetrics & Gynecology [address] [place] [address] Cornel Dasilva MD Status post surgery (Primary Dx); Acute cystitis with hematuria; Encounter for screening mammogram for malignant neoplasm of breast 12/17/2024 Travel 12/15/2024 Travel 12/02/2024 Telephone Obstetrics & Gynecology [address] [place] [address] Cornel Dasilva MD 11/23/2024 Results Follow-Up Obstetrics & Gynecology [address] [place] [address] Cornel Dasilva MD 11/20/2024 Orders Only Obstetrics & Gynecology [address] [place] [address] Cornel Dasilva MD 11/17/2024 Travel 11/13/2024 11:15 AM EDT Office Visit Obstetrics & Gynecology [address] [place] [address] Cornel Dasilva MD Irregular menstruation, unspecified (Primary Dx); Chronic pelvic pain in female 11/13/2024 Telephone Obstetrics & Gynecology [address] [place] [address] Cornel Dasilva MD 11/13/2024 Travel 11/09/2024 Telephone Obstetrics & Gynecology [address] [place] [address] Gina Lo, QUINTEN, JUNIORM 11/07/2024 Travel 11/06/2024 Telephone Obstetrics & Gynecology [address] [place] [address] Cornel Dasilva MD 10/16/2024 Telephone Obstetrics & Gynecology [address] [place] [address] Cornel Dasilva MD 10/06/2024 Results Follow-Up Obstetrics & Gynecology [address] [place] [address] Cornel Dasilva MD 10/01/2024 10:15 AM EDT Office Visit Obstetrics & Gynecology [address] [place] [address] Cornel Dasilva MD Irregular menstruation, unspecified (Primary Dx); Chronic pelvic pain in female 10/01/2024 10:05 AM EDT Ancillary Procedure Obstetrics & Gynecology [address] [place] [address] Irregular menstruation, unspecified; Chronic pelvic pain in female 10/01/2024 Travel from Last 3 Months Family History Medical History Relation Name Comments Hypertension Brother Diabetes Father Cancer Father's Brother 3 Heart disease Father's Brother 3 No Known Problems Father's Brother 4 Breast cancer Father's Sister 1 Breast cancer Father's Sister 2 No Known Problems Father's Sister 3 No Known Problems Father's Sister 4 No Known Problems Father's Sister 5 No Known Problems Father's Sister 6 No Known Problems Father's Sister 7 No Known Problems Maternal Grandfather Diabetes Maternal Grandmother Hypertension Mother Heart attack Mother's Brother 1 No Known Problems Mother's Brother 2 No Known Problems Mother's Brother 3 No Known Problems Mother's Sister Heart attack Paternal Grandfather Heart attack Paternal Grandmother Relation Name Status Comments Brother Alive Father Alive Father's Brother 1 Father's Brother 2 Father's Brother 3 Father's Brother 4 Alive Father's Sister 1 Father's Sister 2 Father's Sister 3 Father's Sister 4 Alive Father's Sister 5 Alive Father's Sister 6 Alive Father's Sister 7 Alive Maternal Grandfather Maternal Grandmother Mother Alive Mother's Brother 1 Mother's Brother 2 Mother's Brother 3 Alive Mother's Sister Alive Paternal Grandfather Paternal Grandmother Social History Tobacco Use Types Packs/Day Years Used Date Smoking Tobacco: Every Day Cigarettes 0.5 10 Started: 2013 Smokeless Tobacco: Never Tobacco Cessation:Ready to Q uit: Not Asked; Counseling Given: Not Answered Alcohol Use Standard Drinks/Week Comments Not Currently [...] PM EDT Sexual Orientation Not on file Last Filed Vital Signs Vital Sign Reading Time Taken Comments Blood Pressure 126/84 12/17/2024 8:58 AM EDT Pulse 91 12/17/2024 8:58 AM EDT Temperature 36.8 C (98.2 F) 12/17/2024 8:58 AM EDT Respiratory Rate 20 10/01/2024 10:08 AM EDT Oxygen Saturation 97% 12/17/2024 8:58 AM EDT Inhaled Oxygen Concentration - - Weight 140 kg (309 lb 1.4 oz) 12/17/2024 8:58 AM EDT Height 170.2 cm (5' 7 ) 12/17/2024 8:58 AM EDT Body Mass Index 48.41 12/17/2024 8:58 AM EDT Plan of Treatment Upcoming Encounters Date Type Department Care Team (Late st Contact Info) Description 12/22/2025 8:45 AM EDT Procedure Visit Obstetrics & Gynecology [address] [place] [address] Cornel Dasilva MD [address] [place] [address] Health Maintenance Due Date Last Done Comments [facility]-HIV Screening 1982 [facility]-Hepatitis C Screening 1982 [facility]-Infant/Child/Adol SDOH Screenings 1982 [facility]-Varicella Vaccines (1 of 2 - 13+ 2-dose series) 1995 HPV Vaccines (1 - 3-dose series) 1997 [facility]- SDOH Screenings 2000 [facility]-Adult SDOH Screenings 2000 [facility]-Hepatitis B Vaccines (1 of 3 - 19+ 3-dose series) 2001 [facility]-Pneumococcal Vaccine: Pediatrics (0 to 5 Years) and At-Risk Patients (6 to 49 Years) (1 of 2 - PCV) 2001 [facility]-OHGHJ-92 Vaccine (2 - season) 2024 09/09/2020 [facility]-Influenza Vaccine (#1) 2025 [facility]-Depression Screening 12/17/2025 12/17/2024, 11/01 [facility]-Pap Smear 12/12/2026 12/13/2023 [facility]-Cervical Cancer Screening 12/12/2028 [facility]-HPV/Cotest 12/12/2028 12/13/2023 [facility]-Zoster Vaccines (1 of 2) 2032 [facility]-DTaP,Tdap,and Td Vaccines (2 - Td or Tdap) 07/31/2033 08/01/2023 [facility]-Hepatitis A Vaccines Aged Out 11/02/2018, 07/2017 No longer eligible based on patient's age to complete this topic [facility]-Obesity Intervention Completed 025, 11/13/2024, 10/01/2024, Additional history exists [facility]-HIB Vaccines Aged Out No longer e ligible based on patient's age to complete this topic [facility]-IPV Vaccines Aged Out No longer e ligible based on patient's age to complete this topic [facility]-Rotavirus Vaccines Aged Out No lo nger eligible based on patient's age to complete this topic Procedures Procedure Name Priority Date/Time Associated Diagnosis Comments URINE CULTURE Routine 12/17/2024 9:07 AM EDT Status post surgery POCT URINALYSIS DIPSTICK Routine 12/17/2024 9:06 AM EDT Status post surgery SURGICAL PATHOLOGY EXAM Routine 11/19/2024 9:02 AM EDT HEMOGLOBIN AND HEMATOCRIT, BLOOD Routine 11/18/2024 5:25 AM EDT Encounter for control pills maintenance , URINE Routine 11/17/2024 6:50 AM EDT Encounter for control pills maintenance TYPE AND SCREEN Routine 11/16/2024 8:56 AM EDT Encounter for control pills maintenance COMPREHENSIVE METABOLIC PANEL, PLASMA Routine 11/13/2024 11:31 AM EDT Encounter for control pills maintenance CBC W/O DIFFERENTIAL Routine 11/13/2024 11:31 AM EDT Encounter for control pills maintenance SURGICAL PATHOLOGY EXAM Routine 10/01/2024 10:38 AM EDT Irregular menstruation, unspecified POCT , URINE Routine 10/01/2024 10:15 AM EDT ENDOMETRIAL BIOPSY Routine 10/01/2024 10 :15 AM EDT Irregular menstruation, unspecified US PELVIS TRANSVAGINAL Routine 10/01/2024 10:04 AM EDT Irregular menstruation, unspecified Chronic pelvic pain in female REFERRED THINPREP PAP AND HPV (SO) Routine 12/13/2023 10:02 AM EDT Encounter for gynecological examination (general) (routine) with abnormal findings from Last 3 Months or Most Recently Relevant to Health Maintenance Results * Urine Culture (12/17/2024 9:07 AM EDT) Culture <10,000 CFU/mL Mixed urogenital, fecal, or skin regla present. 12/18/2024 10:32 AM EDT [facility] Urine Urine specimen obtained by clean catch procedure / Unknown Non-blood Collection / Unknown 12/17/2024 9:07 AM EDT 12/17/2024 12:34 PM EDT Result Jarad Dasilva MD LAB MICROBIOLOGY - [facility] Final Result [facility] [address] [place] [address] * (ABNORMAL) POCT Urinalysis Dipstick (12/17/2024 9:06 AM EDT) POCT Urine Color Yellow POCT Urine Clarity Clear POCT Glucose Urine Negative Negative mg/dL POCT Bilirubin, Urine Negative Negative POCT Ketones, Urine Negative Negative mg/dL POCT Specific Schneider, Urine 1.020 POCT Blood, Urine Trace(A) Negative POCT pH, Urine 5.5 5.0 to 8.0 POCT Protein, Urine Negative Negative mg/dL POCT Urobilinogen, Urine 0.2 0.2, 1 E.U./dL POCT Nitrite, Urine Negative Negative POCT Leukocyte Esterase, Urine Trace(A) Negative Test Strip Lot Number [id number] Test Strip Lot Expiration 08/31/25 Urine Urine specimen obtained by clean catch procedure / Unknown 12/17/2024 9:06 AM EDT Result Jarad Dasilva MD POINT OF CARE TEST ENTER/EDIT O RDERABLES Final Result * Surgical Pathology Exam (11/19/2024 9:02 AM EDT) Only the most recent of2 resultswithin the time period is included. Tissue Result aJrad Dasilva MD LAB PATHOLOGY ORDERABLES Final Result * Hemoglobin and Hematocrit, Blood (11/18/2024 5:25 AM EDT) External Hemoglobin 12.6 12.5 - 16.0 gm/dl [facility] External Hematocrit 37.7 37.0 - 47.0 % [facility] 11/18/2024 5:25 AM EDT 11/18/2024 5:29 AM EDT Result Jarad Dasilva MD LAB BLOOD ORDERABLES Final Resu lt Performing Organization Address [facility] Co de Phone Number [facility] * , urine (11/17/2024 6:50 AM EDT) External Urine Test (Hcg) NEGATIVE NEGATIVE [facility] External HCG Urine Lot # [id number] [facility] External HCG Urine Expiration Date 07-23-25 [facility] External HCG Urine Internal Positive Control OK POSITIVE [facility] 11/17/2024 6:50 AM EDT 11/17/2024 7:24 AM EDT Result Jarad Dasilva MD LAB URINE ORDERABLES Final Resu lt Performing Organization Address [facility] Co de Phone Number [facility] * Type and Screen (11/16/2024 8:56 AM EDT) External History Check Completed [facility] External ABO/Rh A POSITIVE [facility] External Antibody Screen NEGATIVE [facility] External Status Information Completed [facility] 11/16/2024 8:56 AM EDT 11/16/2024 8:56 AM EDT Result Jarad Dasilva MD LAB BLOOD BANK TEST ORDERABLES Final Result Performing Organization Address [facility]/State/ZIP Co de Phone Number [facility] * CBC W/O Differential (11/13/2024 11:31 AM EDT) External WBC 10.1 4.0 - 10.5 K/ul [facility] External Red Blood Cell (RBC) 4.6 4.2 - 6.4 M/mm3 [facility] External Hemoglobin 12.9 12.5 - 16.0 gm/dl [facility] External Hematocrit 38.8 37.0 - 47.0 % [facility] External MCV 84.7 78 - 100 fl [facility] External MCH 28.2 27 - 31 pg [facility] External MCHC 33.2 32 - 36 g/dl [facility] External RDW 13.5 11.5 - 14.0 % [facility] External Platelets 346 150 - 450 K/ul [facility] External MPV 8.8 6 - 9.5 fl [facility] External Manual Differential NO [facility] 11/13/2024 11:3 1 AM EDT 11/13/2024 11:31 AM EDT us Cornel Dasilva MD LAB BLOOD ORDERABLES Final Resu lt [facility] * (ABNORMAL) Comprehensive Metabolic Panel, Plasma (11/13/2024 11:31 AM EDT) External Sodium 139 136 - 145 mmol/L [facility] External Potassium 3.3(L) 3.6 - 5.0 mmol/L [facility] External Chloride 102 98 - 107 mmol/L [facility] External Carbon Dioxide 28.8 21.0 - 32.0 mmol/L [facility] External Anion Gap (AG) 11.5 [facility] External Glucose 104 70 - 120 mg/dl [facility] External BUN 11 7 - 18 mg/dL [facility] External Creatinine Blood 0.8 0.6 - 1.3 mg/dL [facility] External Estimated GFR 94 60- mlpermin [facility] Comment: GFR LIMITATION: The eGFR equation CKD-EPI 2020 is not applicable for pediatric patients or greater than 90 years of age. The following conditions may alter the GFR result: extremes in body size, malnutrition or obesity, skeletal muscle disease, paraplegia or quadriplegia, vegetarian diet or rapidly changing kiney function. External Osmolality (Calculated) 289 275 - 301 mosm/kg [facility] Comment: OSMOLALITY IS A CALCULATION UTILIZING THE SERUM/PLASMA SODIUM, GLUCOSE AND UREA NITROGEN (BUN) LEVELS. FOR THE MOST ACCURATE RESULT A MEASURED SERUM OSMOLALITY IS SUGGESTED. External Total Protein 7.6 6.4 - 8.2 g/dl [facility] External Albumin 3.4 3.4 - 5.0 g/dl [facility] External Globulin 4.2 [facility] External Albumin/Globuli n Ratio 0.8 0.7 - 2 [facility] External Calcium 8.9 8.5 - 10.5 mg/dl [facility] External Bilirubin Total 0.40 0.10 - 1.00 mg/dL [facility] External AST (SGOT) 14 0 - 37 U/L [facility] External ALT (SGPT) 14 0 - 65 U/L [facility] External Alkaline Phosphatase 85 46 - 116 U/L [facility] 11/13/2024 11:3 1 AM EDT 11/13/2024 11:31 AM EDT us Cornel Dasilva MD LAB BLOOD ORDERABLES Final Resu lt [facility] * ENDOMETRIAL BIOPSY (10/01/2024 10:15 AM EDT) Narrative Cornel Dasilva MD - 10/01/2024 10:15 AM EDT Cornel Dasilva MD 10/01/2024 11:41 AM Endometrial biopsy Performed by: Cornel Dasilva MD Authorized by: Cornel Dasilva MD Consent: Consent obtained: Verbal and written Consent given by: Patient Procedural risks discussed: Bleeding, infection and repeat procedure Patient questions answered: yes Patient agrees, verbalizes understanding, and wants to proceed: yes Instructions and paperwork completed: yes Indication: Indications comment: Irregular menses Pre-procedure: Pre-procedure timeout performed: yes Procedure: Procedure: endometrial biopsy with Pipelle A bivalve speculum was placed in the vagina: yes Cervix cleaned and prepped: yes The cervix was dilated: yes Uterus sounded: yes Uterus sound depth (cm): 8 Specimen collected: specimen collected and sent to pathology Patient tolerated procedure well with no complications: yes Findings: Uterus size: 9-10 weeks Cervix: normal Adnexa: normal us Cornel Dasilva MD IN CLINIC/BEDSIDE ORDERABLES Fi nal Result * POCT Urine (10/01/2024 10:15 AM EDT) Urine - Point of Care Negative - women after 7 weeks gestation and dilute urine (specific gravity <1.010) may have false negative results. Plasma HCG testing is recommended. Test performed at Point of Care. Negative - women after 7 weeks gestation and dilute urine (specific gravity <1.010) may have false negative results. Plasma HCG testing is recommended. Test performed at Point of Care. INTERNAL QC OK, PREG URINE ok KIT LOT NUMBER, PREG URINE [id number] KIT EXPIRATION DATE, PREG URINE Urine Urine specimen obtained by clean catch procedure / Unknown 10/01/2024 10:15 AM EDT us Cornel Dasilva MD POINT OF CARE TEST ENTER/EDIT O RDERABLES Final Result * US Pelvis Transvaginal (10/01/2024 10:04 AM EDT) Anatomical Region Laterality Modality Pelvis Ultrasound 10/01/2024 10:2 8 AM EDT Impressions 10/01/2024 10:54 AM EDT The OB Ultrasound you requested has been resulted. Please navigate to the Imaging tab in [employer] for review. This message has been generated by the interface. Narrative Procedure Note Cornel Dasilva MD - 10/01/2024 IMPRESSION: The OB Ultrasound you requested has been resulted. Please navigate to theImaging tab in [employer] for review. This message has been generated by [employer]. Cornel Dasilva MD IMG US PROCEDURES Final Result * Referred ThinPrep Pap and HPV (SO) (12/13/2023 10:02 AM EDT) Pap, Source Cx/Vagina 12/20/2023 5:32 PM EDT [facility] ([facility]) EER Referred ThinPrep Pap and HPV See Note 12/20/2023 5:32 PM EDT [facility] ([facility]) PAP, THINPREP Normal 12/20/2023 5:32 PM EDT [facility] ([facility]) High Risk HPV Normal 12/20/2023 5:32 PM EDT [facility] ([facility]) Swab Vaginal and cervical cytologic material / Unknown Non-blood Collection / Unknown 12/13/2023 10:02 AM EDT 12/13/2023 12:41 PM EDT Narrative [facility] ([facility]) - 12/20/2023 5:32 PM EDT Authorized individuals can access the [facility] Enhanced Report using the following link: [email or web address] Performed By: [facility] [address] [place] [address] Insurance Broker: Elgin Fontaine MD, PhD CLIA Number: [id number] SPECIMEN PART A. Cervical, Endocervical, Vaginal, ThinPrep Pap (Aircraft Inspection Record Clerk) CYTOLOGY HX Date of Last Menstrual Period: n FINAL DIAGNOSIS INTERPRETATION: Negative for Intraepithelial Lesion or Malignancy. SPECIMEN ADEQUACY:Satisfactory for evaluation. Endocervical/transformation zone component is absent/insufficient. Electronically Signed Out : Performed by: [facility] [place] [address] Claribel Linn MD, HR-HPV: Negative Test performed by the FDA-approved Hologic (Gen-Probe) APTIMA HPV test, which detects HPV genotypes: 16, 18, 31, 33, 35, 39, 45, 51, 52, 56, 58, 59, 66, and 68. Performed by: [facility] [address] [place] [address] [place] [address] Claribel Linn MD, us Samanta Leon APRN, DNP LAB REF LAB BLOOD AND F LUID ORD Final Result [facility] ([facility]) [address] [place] [address] from Last 3 Months or Most Recently Relevant to Health Maintenance Insurance [facility] Care Teams Field Crop Farmworker Relationship Specialty Start Date End Date Grabiel Arenas DO [address] [place] [address] [place] [address] PCP - General 11/07/24
--- OUTSIDE RECORDS SUMMARY | 2025-01-01 14:23 | XMS_ITS | Encounter Summary ---
Author Organization Healthcare Address [address] [place] [address] Care Team Providers Care Digital Content Manager Name Role Phone Grabiel Arenas DO Primary Care Provider [phone] Encounter Details Date Type Department Care Team (Latest Contact Info) Description 11/07/2024 Travel Social History Tobacco Use Types Packs/Day [...] EDT Procedure Visit Obstetrics & Gynecology [address] [place] [address] Cornel Dasilva MD [address] [place] [address] documented as of this encounter [...] documented as of this encounter Care Teams Digital Content Manager Relationship Specialty Start Date End Date Grabiel Arenas DO [address] [place] [address] PCP - General 11/07/24 documented as of this encounter
--- OUTSIDE RECORDS SUMMARY | 2025-01-01 14:23 | XMS_ITS | Encounter Summary ---
Author Organization Healthcare Address [address] [place] [id number] Care Team Providers Care Skip Hoist Operator Name Role Phone Deyvi Arellano MD Primary Care Provider [phone] Grabiel Arenas DO Primary Care Provider [phone] Encounter Details Date Type Department Care Team (Late st Contact Info) Description 10/16/2024 Telephone Obstetrics & Gynecology [address] [place] [address] Cornel Dasilva MD [address] [place] [address] Social History Tobacco Use Types [...] energy Not at all 11/13/2024 10:31 AM Saab Andrew Poor appetite or overeating Not at [...] Saba Andrew documented as of this encounter Miscellaneous Notes * Telephone Encounter - Elvira Thompson Jessica - 10/19/2024 1:34 PM EDT Status Update Call #1 1st call regarding the status of the initial request. Best contact number: [phone] (mobile) Optimal time of day to reach caller: ANYTIME Additional comments/information from caller: Patient is calling back to see if she can get her surgery scheduled sooner than January. Note: Please do not reply to this message. Follow-up communication and further actions as a result of this message need to be communicated with the patient directly, if the patient is not active onMyChart. If the patient is active on MyChart, they will receive notification of the communication/outcome via [employer]. * Telephone Encounter - Catarina Albarran - 10/16/2024 9:55 AM EDT Clinical Concern/Question Reason for Call: Pt is ready to schedule for her surgery Best contact number: [phone] (mobile) Optimal time of day to reach caller: ANYTIME Additional comments/information from caller: None Note: Please do not reply to this message. Follow-up communication and further actions as a result of this message need to be communicated with the patient directly, if the patient is not active onMyChart. If the patient is active on MyChart, they will receive notification of the communication/outcome via Fangddt. documented in this encounter Plan of Treatment Upcoming Encounters Date Type Department Care Team (Late Contact Info) Description 12/22/2025 8:45 AM EDT Procedure Visit Obstetrics & Gynecology [address] [place] [address] Cornel Dasilva MD [address] [place] [address] documented as of this encounter [...] documented as of this encounter Care Teams Skip Hoist Operator Relationship Specialty Start Date End Date Deyvi Arellano MD [address] [place] [address] PCP - General 12/13/23 11/06/24 Grabiel Arenas DO [address] [facility] [address] [place] [address] PCP - General 11/07/24 documented as of this encounter
--- OUTSIDE RECORDS SUMMARY | 2025-01-01 14:23 | XMS_ITS | Encounter Summary ---
Author Organization [facility] Address [address] [place] [address] Care Team Providers Care Profiler Hand Name Role Phone Grabiel Arenas DO Primary Care Provider [phone] Encounter Details Date Type Department Care Team (Latest Contact Info) Description 11/13/2024 Travel Social History Tobacco Use Types Packs/Day [...] things Not at all 11/13/2024 10:31 AM OLIVIAT Saba Evans Feeling down, depressed, or hopeless Not at all 11/13/2024 10:31 AM EDT Saba Evans Patient Health Questionnaire -2 Score 0 11/13/2024 10:31 AM EDT Saba Evans * Question Answer Date of Assessment Author [...] Visit Obstetrics & Gynecology [address] [place] [address] Cornel Dasilva MD [address] [place] [address] documented as of this encounter [...] documented as of this encounter Care Teams Profiler Hand Relationship Specialty Start Date End Date Grabiel Arenas DO [address] [place] [address] PCP - General 11/07/24 documented as of this encounter
--- OUTSIDE RECORDS SUMMARY | 2025-01-01 14:23 | XMS_ITS | Encounter Summary ---
Author Organization [facility] Address [address] [place] [address] Care Team Providers Care Cd Reactor Operator Name Role Phone Grabiel Arenas DO Primary Care Provider Encounter Details Date Type Department Care Team (Latest Contact Info) Description 12/17/2024 Travel Social History Tobacco Use Types Packs/Day [...] Fernandez RN documented as of this encounter Plan of Treatment Upcoming Encounters Date Type Department Care Team (Late st Contact Info) Description 12/22/2025 8:45 AM EDT Procedure Visit Obstetrics & Gynecology [address] [place] [address] Cornel Dasilva MD [address] [place] [address] documented as of this encounter [...] documented as of this encounter Care Teams Cd Reactor Operator Relationship Specialty Start Date End Date Grabiel Arenas DO [address] [place] [address] PCP - General 11/07/24 documented as of this encounter
--- OUTSIDE RECORDS SUMMARY | 2025-01-01 14:23 | XMS_ITS | Encounter Summary ---
Author Organization Healthcare Address [address] [id number] Care Team Providers Care Bird Cage Assembler Name Role Phone Grabiel Arenas DO Primary Care Provider Encounter Details Date Type Department Care Team (Late st Contact Info) Description 11/13/2024 Telephone Obstetrics & Gynecology [address] [place] [address] Cornel Dasilva MD [address] [place] [address] Social History Tobacco Use Types [...] things Not at all 11/13/2024 10:31 AM EDT Saba Evans Feeling down, depressed, or hopeless [...] encounter Miscellaneous Notes * Telephone Encounter - Iona Brantley - 11/16/2024 8:42 AM EDT Patient notified * Telephone Encounter - Ailin Akhtar - 11/13/2024 11:42 AM EDT Clinical Concern/Question Reason for Call: Pt is at the hospital now and is wanting to know if she needs to get an EKG beforeher procedure. Pt requests this sent as high priority. Please call. Best contact number: [phone] (home) Optimal time of day to reach [...] will receive notification of the communication/outcome via [employer]. documented in this encounter Plan of Treatment Upcoming Encounters Date Type Department Care Team (Late st Contact Info) Description 12/22/2025 8:45 AM EDT Procedure Visit Obstetrics & Gynecology [address] [place] [address] Cornel Dasilva MD [address] [place] [address] documented as of this encounter [...] documented as of this encounter Care Teams Bird Cage Assembler Relationship Specialty Start Date End Date Grabiel Aernas DO [address] [facility] [address] [place] [address] PCP - General 11/07/24 documented as of this encounter
--- OUTSIDE RECORDS SUMMARY | 2025-01-01 14:23 | XMS_ITS | Encounter Summary ---
Author Organization Healthcare Address [address] [id number] Care Team Providers Care Stock Ranch Supervisor Name Role Phone Grabiel Arenas DO Primary Care Provider [phone] Encounter Details Date Type Department Care Team (Late st Contact Info) Description 12/02/2024 Telephone Obstetrics & Gynecology [address] [place] [address] Cornel Dasilva MD [address] [place] [address] Social History Tobacco Use Types [...] encounter Miscellaneous Notes * Telephone Encounter - Catarina Albarran - 12/02/2024 1:24 PM EDT Clinical Concern/Question Reason for Call: [facility] is calling for details of her surgery Best contact number: Other: [phone] Dinorah Optimal time of day to reach caller: ANYTIME Additional comments/information from caller: None Note: Please do not reply to this message. Follow-up communication and further actions as a result of this message need to be communicated with the patient directly, if the patient is not active onMyChart. If the patient is active on MyChart, they will receive notification of the communication/outcome via MyChart. documented in this encounter Plan of Treatment Upcoming Encounters Date Type Department Care Team (Late st Contact Info) Description 12/22/2025 8:45 AM EDT Procedure Visit Obstetrics & Gynecology [address] [place] [address] Cornel Dasilva MD [address] [place] [address] documented as of this encounter [...] documented as of this encounter Care Teams Stock Ranch Supervisor Relationship Specialty Start Date End Date Grabiel Arenas DO [address] [facility] [address] [place] [address] PCP - General 11/07/24 documented as of this encounter
--- OUTSIDE RECORDS SUMMARY | 2025-01-01 14:23 | XMS_ITS | Encounter Summary ---
Author Organization Healthcare Address [address] [place] [address] Care Team Providers Care Planer Operator / Grader Name Role Phone Grabiel Arenas DO Primary Care Provider [phone] Encounter Details Date Type Department Care Team (Latest Contact Info) Description 11/17/2024 Travel Social History Tobacco Use Types Packs/Day [...] EDT Procedure Visit Obstetrics & Gynecology [address] [place] [address] Cornel Dasilva MD [address] [place] [address] documented as of this encounter [...] documented as of this encounter Care Teams Planer Operator / Grader Relationship Specialty Start Date End Date Grabiel Arenas DO [address] [place] [address] [place] [address] PCP - General 11/07/24 documented as of this encounter
--- OUTSIDE RECORDS SUMMARY | 2025-01-01 14:23 | XMS_ITS | Encounter Summary ---
Author Organization Healthcare Address [address] [id number] Care Team Providers Care Wellness Nurse Name Role Phone Deyvi Arellano MD Primary Care Provider [phone] Grabiel Arenas DO Primary Care Provider [phone] Encounter Details Date Type Department Care Team (Late st Contact Info) Description 10/06/2024 Results Follow-Up Obstetrics & Gynecology [address] [place] [address] Cornel Dasilva MD [address] [place] [address] Social History Tobacco Use Types [...] hopeless Not at all 11/13/2024 10:31 AM Sbaa Andrew Patient Health Questionnaire -2 Score 0 [...] EDT Procedure Visit Obstetrics & Gynecology [address] [place] [address] Cornel Dasilva MD [address] [place] [address] documented as of this encounter [...] documented as of this encounter Care Teams Wellness Nurse Relationship Specialty Start Date End Date Deyvi Arellano MD [address] [place] [address] PCP - General 12/13/23 11/06/24 Grabiel Arenas DO [address] [facility] [address] [place] [address] PCP - General 11/07/24 documented as of this encounter
--- OUTSIDE RECORDS SUMMARY | 2025-01-01 14:23 | XMS_ITS | Encounter Summary ---
Author Organization [facility] Address [address] [place] [address] Care Team Providers Care Baker Apprentice Name Role Phone Grabiel Arenas DO Primary Care Provider [phone] Encounter Details Date Type Department Care Team (Late Contact Info) Description 11/23/2024 Results Follow-Up Obstetrics & Gynecology [address] [place] [address] Cornel Dasilva MD [address] [place] [address] Social History Tobacco Use Types [...] Procedure Visit Obstetrics & Gynecology [address] [place] [address] Cornel Dasilva MD [address] [place] [address] documented as of this encounter Visit Diagnoses [...] documented as of this encounter Care Teams Baker Apprentice Relationship Specialty Start Date End Date Grabiel Arenas DO [address] [place] [address] PCP - General 11/07/24 documented as of this encounter
--- OUTSIDE RECORDS SUMMARY | 2025-01-01 14:23 | XMS_ITS | Encounter Summary ---
Author Organization [facility] Address [address] [place] [address] Care Team Providers Care Biological Technician Name Role Phone Grabiel Arenas DO Primary Care Provider [phone] Encounter Details Date Type Department Care Team (Late Contact Info) Description 11/20/2024 Orders Only Obstetrics & Gynecology [address] [place] [address] Cornel Dasilva MD [address] [place] [address] Social History Tobacco Use Types [...] Procedure Visit Obstetrics & Gynecology [address] [place] [address] Cornel Dasilva MD [address] [address] documented as of this encounter Procedures Procedure Name Priority Date/Time Associated Diagnosis Comments SURGICAL PATHOLOGY EXAM Routine 11/19/2024 9:02 AM EDT documented in this encounter Results * Surgical Pathology Exam (11/19/2024 9:02 AM EDT) Tissue Cornel Dasilva MD LAB PATHOLOGY ORDERABLES Final Result documented in this encounter Visit Diagnoses Not on filedocumented in this encounter Additional Health Concerns Assessment Noted Time PHQ-9 Depression Total Score: 0 11/14/19 10:31 AM EDT A fall risk assessment has been complete d for the patient 11/13/2024 10:31 AM EDT A Body Mass Index follow-up plan has been documented for the patient 11/13/2024 10:47 AM EDT documented as of this encounter Care Teams Biological Technician Relationship Specialty Start Date End Date Grabiel Arenas DO [facility] [place] [address] [place] [address] PCP - General 11/07/24 documented as of this encounter
--- NOTE | 2025-01-01 14:30 | MM_ITS ---
PROCEDURE INFORMATION: Exam: MG Bilateral Screening 3D Mammography Exam date and time: 01/01/2025 2:21 PM Age: 44 years old Clinical indication: Screening examination TECHNIQUE: Imaging protocol: Bilateral Screening tomosynthesis and 2D mammography including computer-aided detection (CAD) when performed. COMPARISON: MG MM DIG SCREENING MAMM BI W/CAD 08/08/2023 12:56 PM FINDINGS: MAMMOGRAPHY: Breast composition: There are scattered areas of fibroglandular density. Mass: None. Architectural distortion: None. Calcifications: No suspicious calcifications. Asymmetric density: None. Skin thickening: None. Axillary adenopathy: None. IMPRESSION: No mammographic evidence of malignancy. Annual screening is recommended unless otherwise clinically indicated. ASSESSMENT: BI-RADS Category 1: Negative.
== END 2025-01-01 23:59 | disposition home or self-care (01) ==
LOC: RAD 14:21
PROVIDERS: PCP Internal Medicine; Visit Provider Internal Medicine
DX: Z12.31 Encounter for screening mammogram for malignant neoplasm of breast (principal); R92.323 Mammographic fibroglandular density, bilateral breasts
CPT/HCPCS: 77063; 77067

== ENCOUNTER 2025-02-23 09:11 | Outpatient (CLI) | payer OTHER, SELFPAY ==
--- OUTSIDE RECORDS SUMMARY | 2025-01-19 12:00 | XMS_ITS | Encounter Summary ---
Author Organization Healthcare Address [address] [place] [address] Care Team Providers Care Fixed Interest Dealer Name Role Phone Grbaiel Arenas DO Primary Care Provider Reason for Visit * Reason Comments Labs Only Encounter Details Date Type Department Care Team (Latest Contact Info) Description 01/19/2025 12:00 PM EDT Clinical Support Obstetrics & Gynecology [facility] [place] [address] UTI symptoms (Primary Dx) Social History Tobacco Use Types Packs/Day Years [...] as of this encounter Miscellaneous Notes * Clinician Note - Milagro Kincaid - 01/19/2025 12:00 PM EDT Labs for uti symptoms, sharp and straining pain with urination documented in this encounter Plan of Treatment Upcoming Encounters Date Type Department Care Team (Late st Contact Info) Description 12/22/2025 8:45 AM EDT Procedure Visit Obstetrics & Gynecology [address] [place] [address] Cornel Dasilva MD [address] [place] [address] documented as of this encounter Procedures Procedure Name Priority Date/Time Associated Diagnosis Comments POCT URINALYSIS DIPSTICK Routine 01/19/2025 1:07 PM EDT UTI symptoms URINE CULTURE Routine 01/19/2025 1:06 PM EDT UTI symptoms documented in this encounter Results * Urine dip (01/19/2025 1:07 PM EDT) POCT Urine Color Yellow POCT Urine Clarity Clear POCT Glucose Urine Negative Negative mg/dL POCT Bilirubin, Urine Negative Negative POCT Ketones, Urine Negative Negative mg/dL POCT Specific [place], Urine 1.010 POCT Blood, Urine Negative Negative POCT pH, Urine 5.5 5.0 to 8.0 POCT Protein, Urine Negative Negative mg/dL POCT Urobilinogen, Urine 0.2 0.2, 1 E.U./dL POCT Nitrite, Urine Negative Negative POCT Leukocyte Esterase, Urine Negative Negative Test Strip Lot Number [id number] Test Strip Lot Expiration [id number] Urine Urine specimen obtained by clean catch procedure / Unknown 01/19/2025 1:07 PM EDT us Cornel Dasilva MD POINT OF CARE TEST ENTER/EDIT O RDERABLES Final Result * Urine Culture (01/19/2025 1:06 PM EDT) Culture <10,000 CFU/mL Mixed urogenital, fecal, or skin regla present. 01/21/2025 10:17 AM EDT [facility] Urine Urine specimen obtained by clean catch procedure / Unknown Non-blood Collection / Unknown 01/19/2025 1:06 PM EDT 01/19/2025 6:51 PM EDT Cornel Dasilva MD LAB MICROBIOLOGY - GENERAL CODEY SANTOS Final Result [facility] [address] [place] [address] documented in this encounter Visit Diagnoses Diagnosis UTI symptoms- Primary documented in this encounter Additional Health Concerns Assessment Noted Time PHQ-9 Depression Total Score: 0 11/14/19 10:31 AM EDT A fall risk assessment has been complete d for the patient 12/17/2024 8:59 AM EDT A Body Mass Index follow-up plan has been documented for the patient 01/19/2025 1:09 PM EDT documented as of this encounter Care Teams Fixed Interest Dealer Relationship Specialty Start Date End Date Grabiel Arenas DO [address] [place] [address] [place] [address] PCP - General 11/07/24 documented as of this encounter
--- OUTSIDE RECORDS SUMMARY | 2025-01-28 08:00 | XMS_ITS | Encounter Summary ---
Author Organization [facility] Address [address] [id number] Care Team Providers Care Windows Phone Developer Name Role Phone Grabiel Arenas DO Primary Care Provider [phone] Reason for Visit * Reason Comments Annual Exam Pt reports+ desire f or STD screening rt new partner this weekend, desire urine test to make sure no UTI, mmg early January was normal, fine with pelvic exam- vaginal, urinary or breast changes Encounter Details Date Type Department Care Team (Late st Contact Info) Description 01/28/2025 8:00 AM EDT Office Visit Obstetrics & Gynecology [address] [place] [address] Lyssa Brennan, QUINTEN [address] [place] [address] Encounter for gynecological examination without abnormal finding (Primary Dx); Routine screening for STI (sexually transmitted infection); Vaginal discharge Social History Tobacco Use Types Packs/Day Years Used Date Smoking Tobacco: Every Day Cigarettes 0.5 10 Started: 2013 Smokeless Tobacco: Never Alcohol Use Standard Drinks/Week Comments Not Currently 0 (1 standard drink = 0.6 oz pur e alcohol) PHQ-2 Answer Date Recorded Patient Health Questionnaire-2 Score 0 01/28/2025 PHQ-9 Answer Date Recorded Patient Health Questionnaire-9 Score 0 11/13/2024 Comments No Sex and Gender Information Value Date Recorded Sex Assigned at Female 03/15/2023 3:46 PM EDT Legal Sex Female 3:38 PM EDT Gender Identity Female 03/15/2023 3:46 PM EDT Sexual Orientation Not on file documented as of this encounter Last Filed Vital Signs Vital Sign Reading Time Taken Comments Blood Pressure 127/82 01/28/2025 8:27 AM EDT Pulse 86 01/28/2025 8:27 AM EDT Temperature 36.4 C (97.6 F) 01/28/2025 8:27 AM EDT Respiratory Rate - - Oxygen Saturation 98% 01/28/2025 8:27 AM EDT Inhaled Oxygen Concentration - - Weight 141 kg (311 lb 11.7 oz) 01/28/2025 8:27 A M EDT Height - - Body Mass Index 48.82 12/17/2024 8:58 AM EDT documented in this encounter Functional Status * Over the past 2 weeks, how often have you been bothered by any of the following problems? Question Answer Date of Assessment Author Little interest or pleasure in doing things Not at all 01/28/2025 8:28 AM EDT Hayley George RN Feeling down, depressed, or hopeless Not at all 01/28/2025 8:28 AM EDT Hayley George RN Patient Health Questionnaire -2 Score 0 01/28/2025 8:28 AM EDT Hayley George RN * How difficult have these problems made it for you to do your work, take care of things at home, or get along with other people? Answer Date of Assessment Author Not difficult at all 01/28/2025 8:28 AM EDT Hayley Lang RN documented as of this encounter Miscellaneous Notes * Addendum Note - Lyssa Brennan APRN - 01/28/2025 8:00 AM EDTAddended by: LYSSA BRENNAN on: 02/04/2025 12:34 PM Modules accepted: Orders * Progress Notes - Lyssa Brennan APRN - 01/28/2025 8:00 AM EDT Gynecology Health Maintenance Note Subjective Gabriella Hsieh is a 44 y.o. here for a routine gynecology health maintenance visit. The following chart sections have been reviewed and updated: Allergies Meds Surg Hx OB Status Here today for annual exam. Denies history of abnormal pap smear screenings in the past. Denies breast concerns. Denies bowel/bladder issues. Denies vaginal concerns including itch/odor/burn/discharge. Desires STI screening today. Reports new partner over the weekend. Denies vaginal sx or known exposures to STI. Denies immediate family history of breast, ovarian, or uterine cancers. No further questions or concerns today. Cycles: Absent. S/p TLH/BS 11/2024 Pap: 12/2023 MM01/2025 Review of Systems Constitutional: Negative. HENT: Negative. Eyes: Negative. Respiratory: Negative. Cardiovascular: Negative. Gastrointestinal: Negative. Endocrine: Negative. Genitourinary: Negative. Musculoskeletal: Negative. Skin: Negative. Allergic/Immunologic: Negative. Neurological: Negative. Hematological: Negative. Psychiatric/Behavioral: Negative. Objective Visit Vitals BP 127/82 Pulse 86 Temp 36.4 ??C (97.6 ??F) Body mass index is 48.82 kg/m??. Physical Exam Constitutional: Appearance: Normal appearance. Genitourinary: Vulva, bladder, rectum and urethral meatus normal. Right Labia: No rash, tenderness, lesions or skin changes. Left Labia: No tenderness, lesions, skin changes or rash. Vaginal discharge present. No vaginal tenderness or bleeding. Right Adnexa: not tender and no mass present. Left Adnexa: not tender and no mass present. Cervix is absent. Uterus is absent. Breasts: Right: Normal. Left: Normal. HENT: Head: Normocephalic and atraumatic. Right Ear: External ear normal. Left Ear: External ear normal. Nose: Nose normal. Cardiovascular: Rate and Rhythm: Normal rate. Pulmonary: Effort: Pulmonary effort is normal. Abdominal: General: Abdomen is flat. Palpations: Abdomen is soft. Musculoskeletal: General: Normal range of motion. Cervical back: Normal range of motion. Neurological: General: No focal deficit present. Mental Status: She is alert and oriented to person, place, and time. Skin: General: Skin is warm and dry. Psychiatric: Mood and Affect: Mood normal. Behavior: Behavior normal. Thought Content: Thought content normal. Judgment: Judgment normal. Vitals and nursing note reviewed. Exam conducted with a telephone plant power operator present. Assessment Assessment & Plan Encounter for gynecological examination without abnormal finding Routine screening for STI (sexually transmitted infection) Orders: POCT Urinalysis Dipstick Hepatitis C Antibody w/Reflex to HCV Quant PCR; Future Hepatitis B Surface Antigen; Future Herpes Simplex Type 1 and Type 2 Glycoprotein G-Specific Antibodies, IgG; Future HIV 1 & 2 Antibody/Antigen Screen w/Reflex to HIV 1/2 Differentiation; Future Treponema Pallidum (Syphilis) Antibodies with Reflex to RPR and RPR Titer (Those with NO known Syphilis); Future Trichomonas Vaginalis Antigen; Future Bacterial Vaginosis Panel, Reflex to Lactobacillus Recovery; Future Chlamydia trachomatis DNA by PCR; Future Libby Vaginitis Panel, Reflex to Fluconazole Resistance; Future Neisseria gonorrhea DNA by PCR; Future Vaginal discharge - Pap UTD. - MMG UTD. - Thick white discharge noted on exam- swab sent, will treat as indicated once results received. - STI screening today. Will notify pt of results when available and tx as indicated. - Reviewed health maintenance including diet, regular exercise, dietary supplementation and periodic exams. - Answered all patient questions. Agreeable to plan of care - RTC prn or annually. documented in this encounter Plan of Treatment Upcoming Encounters Date Type Department Care Team (Late st Contact Info) Description 12/22/2025 8:45 AM EDT Procedure Visit Obstetrics & Gynecology [address] [place] [address] Cornel Dasilva MD [address] [place] [address] documented as of this encounter Procedures Procedure Name Priority Date/Time Associated Diagnosis Comments HIV 1/2 ANTIBODY/ANTIGEN SCREEN W/REFLEX TO HIV 1/2 ANTIBODY DIFFERENTIATION Routine 01/28/2025 8:49 AM EDT Routine screening for STI (sexually transmitted infection) TREPONEMA PALLIDUM (SYPHILIS) ANTIBODIES WITH REFLEX TO RPR AND RPR TITER (THOSE WITH NO KNOWN SYPHILIS) Routine 01/28/2025 8:49 AM EDT Routine screening for STI (sexually transmitted infection) TRICHOMONAS VAGINALIS ANTIGEN Routine 01/28/2025 8:49 AM EDT Routine screening for STI (sexually transmitted infection) CHLAMYDIA TRACHOMATIS DNA BY PCR Routine 01/28/2025 8:49 AM EDT Routine screening for STI (sexually transmitted infection) HERPES SIMPLEX TYPE 1 AND TYPE 2 GLYCOPROTEIN G-SPECIFIC ANTIBODIES, IGG (SO) Routine 01/28/2025 8:49 AM EDT Routine screening for STI (sexually transmitted infection) LIBBY VAGINITIS PANEL,REFLEX TO FLUCONAZOLE RESISTANCE (SO) Routine 01/28/2025 8:49 AM EDT Routine screening for STI (sexually transmitted infection) BACTERIAL VAGINOSIS PANEL,REFLEX TO LACTOBACILLUS RECOVERY (SO) Routine 01/28/2025 8:49 AM EDT Routine screening for STI (sexually transmitted infection) HIV 1/2 ANTIBODY/ANTIGEN SCREEN WITH REFLEX TO HIV I/II DIFFERENTIATION Routine 01/28/2025 8:49 AM EDT Routine screening for STI (sexually transmitted infection) HEPATITIS C ANTIBODY W/REFLEX TO HCV QUANT PCR Routine 01/28/2025 8:49 AM EDT Routine screening for STI (sexually transmitted infection) NEISSERIA GONORRHEA DNA BY PCR Routine 01/28/2025 8:49 AM EDT Routine screening for STI (sexually transmitted infection) HEPATITIS B SURFACE ANTIGEN Routine 01/28/2025 8:49 AM EDT Routine screening for STI (sexually transmitted infection) POCT URINALYSIS DIPSTICK Routine 01/28/2025 8:35 AM EDT Routine screening for STI (sexually transmitted infection) documented in this encounter Results * HIV 1 & 2 Antibody/Antigen Screen (01/28/2025 8:49 AM EDT) HIV 1 & 2 Antibody/Antigen Screen Non Reactive Non Reactive 01/28/2025 2:43 PM EDT [facility] Comment:Screening for HIV 1 & 2 antibodies, and P24 antigen is NONREACTIVE. No confirmatory testing is required. Blood Venous blood specimen / Unknown Venipuncture / Unknown 01/28/2025 8:49 AM EDT 01/28/2025 1:41 PM EDT Lyssa Brennan [facility] LAB BLOOD ORDERABLES Final Result Performing Organization Address [facility]/ZIP Co de Phone Number [facility] [address] [place] [address] * Neisseria gonorrhea DNA by PCR (01/28/2025 8:49 AM EDT) Neisseria gonorrhea DNA PCR Result Not Detected Not Detected. 01/29/2025 11:07 AM EDT [facility] Swab Vaginal structure / Unknown Non-blood Collection / Unknown 01/28/2025 8:49 AM EDT 01/28/2025 2:08 PM EDT Narrative [facility] - 01/29/2025 11:07 AM EDT This test is performed by the [employer] m2000 instrument for Real Time PCR C. trachomatis and N. gonorrhea. This test is FDA approved for use with endocervical, vaginal, and urine specimens. This test is used for clinical purposes. It should not be regarded as invesigational or for research. The [facility] is certified under the Clinical Laboratory Improvement Amendments of 1988 (CLIA-88) as qualified to perform high complexity clinical laboratory testing. Lyssa Brennan APRN LAB MICROBIOLOGY - GENERAL ORDERABLES Final Result Performing Organization Address City/[facility] Co de Phone Number [facility] [address] [place] [address] * Libby Vaginitis Panel, Reflex to Fluconazole Resistance (01/28/2025 8:49 AM EDT) See Scanned Result SEE SCANNED REPORT 02/03/2025 4:[address] [facility] Swab Endocervical structure / Unknown Non-blood Collection / Unknown 01/28/2025 8:49 AM EDT 01/28/2025 1:41 PM EDT Lyssa Brennan APRN LAB REF LAB BLOOD AND FLUID ORD Final Result Performing Organization Address [facility] Co de Phone Number [facility] * Chlamydia trachomatis DNA by PCR (01/28/2025 8:49 AM EDT) Chlamydia trachomatis DNA PCR Result Not Detected Not Detected 01/29/2025 11:07 AM EDT [facility] Swab Vaginal structure / Unknown Non-blood Collection / Unknown 01/28/2025 8:49 AM EDT 01/28/2025 2:08 PM EDT Narrative [facility] - 01/29/2025 11:07 AM EDT This test is performed by the [employer] instrument for Real Time PCR C. trachomatis and N. gonorrhea. This test is FDA approved for use with endocervical, vaginal, and urine specimens. This test is used for clinical purposes. It should not be regarded as invesigational or for research. The [facility] is certified under the Clinical Laboratory Improvement Amendments of 1988 (CLIA-88) as qualified to perform high complexity clinical laboratory testing. Lyssa Brennan APRN LAB MICROBIOLOGY - GENERAL ORDERABLES Final Result Performing Organization Address [facility] de Phone Number [facility] [address] [place] [address] * Bacterial Vaginosis Panel, Reflex to Lactobacillus Recovery (01/28/2025 8:49 AM EDT) See Scanned Result SEE SCANNED REPORT 02/03/2025 4:[address] [facility] Swab Endocervical structure / Unknown Non-blood Collection / Unknown 01/28/2025 8:49 AM EDT 01/28/2025 1:41 PM EDT Lyssa Brennan APRN LAB REF LAB BLOOD AND FLUID ORD Final Result Performing Organization Address City/[facility] Co de Phone Number [facility] * Trichomonas Vaginalis Antigen (01/28/2025 8:49 AM EDT) Trichomonas vaginalis Antigen Result Negative Negative 01/28/2025 3:12 PM EDT [facility] Swab Vaginal structure / Unknown Non-blood Collection / Unknown 01/28/2025 8:49 AM EDT 01/28/2025 2:08 PM EDT Narrative [facility] - 01/28/2025 3:12 PM EDT This test was developed and its performance characteristics determined by [facility]. It has not been cleared or approved by the US Food and Drug Administration. FDA does not require this test to go through premarket FDA review. This test is used for clinical purposes. It should not be regarded as investigational or for research. This laboratory is certified under the Clinical Laboratory Improvement Amendments (CLIA) as qualified to perform high complexity clinical laboratory testing. Lyssa Brennan APRN LAB MICROBIOLOGY - GENERAL ORDERABLES Final Result Performing Organization Address [facility] Co de Phone Number [facility] [address] [place] [address] * Treponema Pallidum (Syphilis) Antibodies with Reflex to RPR and RPR Titer (Those with NO known Syphilis) (01/28/2025 8:49 AM EDT) Pathologist [facility] Syphilis Antibody (IgG+IgM) Nonreactive Nonreactive 01/28/2025 3:08 PM EDT [facility] Comment:Nonreactive. No sero logic evidence of syphilis. No follow-up necessary unless clinically indicated (e.g., early syphilis). Blood Venous blood specimen / Unknown Venipuncture / Unknown 01/28/2025 8:49 AM EDT 01/28/2025 1:41 PM EDT [employer] LAB BLOOD ORDERABLES Final Result Performing Organization Address [facility] Co de Phone Number [facility] [address] [place] [address] * (ABNORMAL) Herpes Simplex Type 1 and Type 2 Glycoprotein G-Specific Antibodies, IgG (01/28/2025 8:49 AM EDT) [facility] HSV 1 Glycoprotien G Ab, IgG 29.30(H) <=0.89 IV 01/30/2025 11:37 AM EDT [facility] HSV 2 Glycoprotein G Ab, IgG 0.03 <=0.89 IV 01/30/2025 11:37 AM EDT [facility] Blood Venous blood specimen / Unknown Venipuncture / Unknown 01/28/2025 8:49 AM EDT 01/28/2025 1:41 PM EDT Narrative [facility] - 01/30/2025 11:37 AM EDT REFERENCE INTERVAL: HSV 1 Glycoprotein G Ab, IgG 0.89 IV or less ...... Negative - No significant level of detectable IgG antibody to HSV type 1 glycoprotein G. 0.90 - 1.09 IV ....... Equivocal - Questionable presence of IgG antibody to HSV type 1 glycoprotein G. Repeat testing in 10 - 14 days may be helpful. 1.10 IV or greater ... Positive - IgG antibody to HSV type 1 glycoprotein G detected, which may indicate a current or past HSV infection. Individuals infected with HSV may not exhibit detectable IgG antibody to type-specific HSV antigens 1 and 2 in early stages of infection. Detection of antibody presence in these cases may only be possible using a non-type specific screening test. REFERENCE INTERVAL: HSV 2 Glycoprotein G Ab, IgG 0.89 IV or less ....... Negative - No significant level of detectable IgG antibody to HSV type 2 glycoprotein G. 0.90 - 1.09 IV ........ Equivocal - Questionable presence of IgG antibody to HSV type 2 glycoprotein G. Repeat testing in 10 - 14 days may be helpful. 1.10 IV or greater .... Positive - IgG antibody to HSV type 2 glycoprotein G detected, which may indicate a current or past HSV infection. Individuals infected with HSV may not exhibit detectable IgG antibody to type-specific HSV antigens 1 and 2 in early stages of infection. Detection of antibody presence in these cases may only be possible using a non-type specific screening test. False positive results are possible. Consider additional testing for HSV-2, particularly if the result for HSV-2 is </= 3.0 IV. Performed By: [facility] [address] [place] [address] Assembler Insulator: Elgin Fontaine MD, PhD CLIA Number: [id number] Lyssa Brennan APRN LAB BLOOD ORDERABLES Final Result Performing Organization Address [facility]/ZIP Co de Phone Number [facility] [address] [place] [address] * Hepatitis B Surface Antigen (01/28/2025 8:49 AM EDT) Pathologist [facility] Hepatitis B Surf Antigen Negative Negative 01/28/2025 3:08 PM EDT [facility] Blood Venous blood specimen / Unknown Venipuncture / Unknown 01/28/2025 8:49 AM EDT 01/28/2025 1:41 PM EDT Lyssa Brennan APRN LAB BLOOD ORDERABLES Final Result Performing Organization Address [facility] Co de Phone Number [facility] [address] [place] [address] * Hepatitis C Antibody w/Reflex to HCV Quant PCR (01/28/2025 8:49 AM EDT) [facility] Hepatitis C Antibody Negative Negative 01/28/2025 2:43 PM EDT [facility] Blood Venous blood specimen / Unknown Venipuncture / Unknown 01/28/2025 8:49 AM EDT 01/28/2025 1:41 PM EDT Lyssa Brennan APRN LAB BLOOD ORDERABLES Final Result Performing Organization Address [facility]/ZIP Co de Phone Number [facility] [address] [place] [address] * POCT Urinalysis Dipstick (01/28/2025 8:35 AM EDT) [facility] POCT Urine Color Light Yellow POCT Urine Clarity Clear POCT Glucose Urine Negative Negative mg/dL POCT Bilirubin, Urine Negative Negative POCT Ketones, Urine Negative Negative mg/dL POCT Specific [place], Urine 1.015 POCT Blood, Urine Negative Negative POCT pH, Urine 6.5 5.0 to 8.0 POCT Protein, Urine Negative Negative mg/dL POCT Urobilinogen, Urine 0.2 0.2, 1 E.U./dL POCT Nitrite, Urine Negative Negative POCT Leukocyte Esterase, Urine Negative Negative Test Strip Lot Number [id number] Test Strip Lot Expiration 03/2025 Urine Urine specimen obtained by clean catch procedure / Unknown 01/28/2025 8:35 AM EDT Lyssa Brennan APRN POINT OF CARE TEST ENTER/ED IT ORDERABLES Final Result documented in this encounter Visit Diagnoses Diagnosis Encounter for gynecological examination without abnormal finding- Primary Routine screening for STI (sexually transmitted infection) Screening examination for venereal disease Vaginal discharge Leukorrhea, not specified as infective documented in this encounter Additional Health Concerns Assessment Noted Time PHQ-9 Depression Total Score: 0 11/14/19 10:31 AM EDT A fall risk assessment has been complete d for the patient 01/28/2025 8:28 AM EDT A Body Mass Index follow-up plan has been documented for the patient 01/28/2025 8:54 AM EDT documented as of this encounter Care Teams Windows Phone Developer Relationship Specialty Start Date End Date Grabiel Arenas DO [address] [place] [address] [place] [address] PCP - General 11/07/24 documented as of this encounter
[2025-02-23 15:11] LABS: Hematocrit 40.3 % (37.0-47.0); Hemoglobin 13.2 g/dL (12.2-16.2); Immature Granulocytes % 0.4 %; Mean Corpuscular HGB Conc 32.8 g/dL (31.8-35.4); Mean Corpuscular Hemoglobin 27.8 pg (27.0-31.2); Mean Corpuscular Volume 84.8 fl (81-99); Nucleated Red Blood Cells % 0 %; Platelet Count 381 K/mm3 (142-424); Red Blood Count 4.75 M/mm3 (4.20-5.40); Red Cell Distribution Width-SD 44.8 fL; White Blood Count 11.2 K/mm3 (4.8-10.8)
[2025-02-23 16:13] LABS: Albumin Level 4.4 g/dl (3.5-5.0); Chloride 98 mmol/L (98-107)
[2025-02-23 16:14] LABS: Potassium 3.6 mmoL/L (3.5-5.1); Sodium 136 mmol/L (136-145)
[2025-02-23 16:16] LABS: Alanine Aminotransferase 11 U/L (12-78); Alkaline Phosphatase 74 U/L (38-126); Anion Gap 18.6 mEq/L (5-15); Aspartate Amino Transferase 24 U/L (14-36); Bilirubin,Total 0.9 mg/dl (0.2-1.3); Blood Urea Nitrogen 14 mg/dl (7-17); Carbon Dioxide 23 mmol/L (22.0-30.0); Creatinine,Serum 0.70 mg/dl (0.52-1.04); Estimated Glomerular Filt Rate 92 ml/min (>60); GFR (African American) 111 ML/MIN (>60)
[2025-02-23 16:17] LABS: Albumin/Globulin Ratio 1.4 (1.1-1.8); Calcium 8.9 mg/dl (8.4-10.2); Globulin 3.2 g/dL (1.3-3.2); Glucose 87 mg/dl (74-100); Total Protein,Serum 7.6 g/dl (6.3-8.2)
[2025-02-23 16:53] LABS: Thyroid Stimulating Hormone 2.06 uIU/mL (0.465-4.68)
[2025-02-24 08:27] LABS: FSH 2.1 mIU/mL (.); LH 2.6 mIU/mL (.)
--- OUTSIDE RECORDS SUMMARY | 2025-02-24 10:13 | XMS_ITS | Encounter Summary ---
Author Organization Healthcare Address [address] [place] [address] Care Team Providers Care Lab Tester Name Role Phone Grabiel Arenas DO Primary Care Provider [phone] Encounter Details Date Type Department Care Team (Latest Contact Info) Description 01/19/2025 Travel Social History Tobacco Use Types Packs/Day [...] EDT Procedure Visit Obstetrics & Gynecology [address] [place] [address] Cornel Dasilva MD [address] [place] [address] documented as of this encounter [...] documented as of this encounter Care Teams Lab Tester Relationship Specialty Start Date End Date Grabiel Arenas DO [address] [place] [address] PCP - General 11/07/24 documented as of this encounter
--- OUTSIDE RECORDS SUMMARY | 2025-02-24 10:14 | XMS_ITS | Encounter Summary ---
Author Organization Healthcare Address [address] [place] [address] Care Team Providers Care Body Builder Name Role Phone Grabiel Arenas Primary Care Provider [phone] Encounter Details Date Type Department Care Team (Late st Contact Info) Description 02/02/2025 Telephone Obstetrics & Gynecology [address] [place] [address] Eleni Fernandez RN ```````````````````````` `````HOSP. OBSTETRICS, POST Social History Tobacco Use Types Packs/Day Years [...] Addendum Note - Lyssa Brennan APRN - 02/02/2025 4:16 PM EDTAddended by: LYSSA BRENNAN on: 02/02/2025 04:16 PM Modules accepted: Orders * Telephone Encounter - Eleni Fernandez, RN - 02/02/2025 3:26 PM EDT Pt aware of lab results. Mychart task sent to Tim Brennan APRN for valtrex due to pt having oral outbreak. documented in this encounter Plan of Treatment Upcoming Encounters Date Type Department Care Team (Late st Contact Info) Description 12/22/2025 8:45 AM EDT Procedure Visit Obstetrics & Gynecology [address] [place] [address] Cornel Dasilva MD [address] [place] [address] documented as of this encounter Visit Diagnoses Diagnosis History of PCR DNA positive for HSV1- Primary documented in this encounter Additional Health Concerns Assessment Noted Time PHQ-9 Depression Total Score: 0 11/14/19 10:31 AM EDT A fall risk assessment has been complete d for the patient 01/28/2025 8:28 AM EDT A Body Mass Index follow-up plan has been documented for the patient 01/28/2025 8:54 AM EDT documented as of this encounter Care Teams Body Builder Relationship Specialty Start Date End Date Grabiel Arenas DO [address] [place] [address] PCP - General 11/07/24 documented as of this encounter
--- OUTSIDE RECORDS SUMMARY | 2025-02-24 10:14 | XMS_ITS | Encounter Summary ---
Author Organization [facility] Address [address] [place] [address] Care Team Providers Care Gas Roller Operator Name Role Phone Grabiel Arenas DO Primary Care Provider [phone] Encounter Details Date Type Department Care Team (Latest Contact Info) Description 01/28/2025 Travel Social History Tobacco Use Types Packs/Day [...] things Not at all 01/28/2025 8:28 AM OLIVIAT Hayley George RN Feeling down, depressed, or hopeless Not at all 01/28/2025 8:28 AM OLIVIAT Hayley George RN Patient Health Questionnaire -2 Score 0 01/28/2025 8:28 AM EDT Hayley George RN * How difficult have these problems made it for you to do your work, take care of things at home, or get along with other people? Answer Date of Assessment Author Not difficult at all 01/28/2025 8:28 AM EDT Rosy castroe, Hayley Obrien RN documented as of this encounter Plan of Treatment Upcoming Encounters Date Type Department Care Team (Late st Contact Info) Description 12/22/2025 8:45 AM EDT Procedure Visit Obstetrics & Gynecology [address] [place] [address] Cornel Dasilva MD [address] [place] [address] documented as of this encounter [...] documented as of this encounter Care Teams Gas Roller Operator Relationship Specialty Start Date End Date Grabiel Arenas DO [address] [facility] [address] [place] [address] PCP - General 11/07/24 documented as of this encounter
--- OUTSIDE RECORDS SUMMARY | 2025-02-24 10:14 | XMS_ITS | Encounter Summary ---
Author Organization [facility] Address [address] [id number] Care Team Providers Care Ship Pilot Name Role Phone Grabiel Arenas DO Primary Care Provider [phone] Reason for Visit * Reason Comments Med Refill Encounter Details Date Type Department Care Team (Late st Contact Info) Description 01/18/2025 Refill Obstetrics & Gynecology [address] [place] [address] Cornel Dasilva MD [address] [place] [address] Acute cystitis with hematuria Social History Tobacco Use Types Packs/Day Years [...] EDT Procedure Visit Obstetrics & Gynecology [address] [place] [address] Cornel Dasilva MD [address] [place] [id number] documented as of this encounter Visit Diagnoses Diagnosis Acute cystitis with hematuria documented in this encounter Additional Health Concerns Assessment Noted Time PHQ-9 Depression Total Score: 0 11/14/19 25 10:31 AM EDT A fall risk assessment has been complete d for the patient 12/17/2024 8:59 AM EDT A Body Mass Index follow-up plan has been documented for the patient 12/17/2024 9:24 AM EDT documented as of this encounter Care Teams Ship Pilot Relationship Specialty Start Date End Date Grabiel Arenas DO [address] [facility] [address] [place] [address] PCP - General 11/07/24 documented as of this encounter
--- OUTSIDE RECORDS SUMMARY | 2025-02-24 10:14 | XMS_ITS | Encounter Summary ---
Author Organization Healthcare Address [address] [id number] Care Team Providers Care Esthetic Dermatologist Name Role Phone Grabiel Arenas DO Primary Care Provider [phone] Encounter Details Date Type Department Care Team (Late st Contact Info) Description 01/28/2025 Results Follow-Up Obstetrics & Gynecology [address] [place] [address] Lyssa Brennan, TRAVEL REGISTERED NURSE PACU [address] [place] [address] Social History Tobacco Use Types [...] at all 01/28/2025 8:28 AM EDT Hayley George, TIMMY Patient Health Questionnaire -2 Score 0 01/28/2025 8:28 AM EDT Hayley George, RN * How difficult have these problems made it for you to do your work, take care of things at home, or get along with other people? Answer Date of Assessment Author Not difficult at all 01/28/2025 8:28 AM EDT Rosy angeles, Hayley Obrien, RN documented as of this encounter Miscellaneous Notes * Telephone Encounter - Eleni Fernandez RN - 01/29/2025 2:55 PM EDT Pt aware of results documented in this encounter Plan of Treatment Upcoming Encounters Date Type Department Care Team (Late st Contact Info) Description 12/22/2025 8:45 AM EDT Procedure Visit Obstetrics & Gynecology [address] [place] [address] Cornel Dasilva MD [address] [place] [address] documented as of this encounter [...] documented as of this encounter Care Teams Esthetic Dermatologist Relationship Specialty Start Date End Date Grabiel Arenas DO [address] [place] [address] [place] [address] PCP - General 11/07/24 documented as of this encounter
--- OUTSIDE RECORDS SUMMARY | 2025-02-24 10:14 | XMS_ITS | Clinical Summary ---
Author Organization [facility] Address [address] [place] [address] Care Team Providers Care Apprentice Plumber Name Role Phone Grabiel Arenas DO Primary Care Provider [phone] Allergies Active Allergy Reactions Criticality Noted Date Comments Crab (Diagnostic) Itching Medium 11/28/2023 Penicillins Unknown - Patient st ates they do not know rxn details Low 11/28/2023 Wasp Venom Hives,Rash Medium 12/17/2024 welps Medications albuterol 108 (90 Base) MCG/ACT inhaler 2 puffs. 3 Active EPINEPHrine (Epipen) 0.3 MG/0.3ML injection syringe 0.3 mL (0.3 mg). 3 Active cholecalciferol (D3 5000) 125 MCG (5000 UT) capsule Take 1 capsule (5,000 Units) by mouth 1 (one) time each day. Active fluticasone (Flonase) 50 MCG/ACT nasal spray 1 spray. 3 Active hydroCHLOROthia zide (HYDRODiuril) 12.5 MG tablet 1 tablet (12.5 mg). 4 Active metoprolol succinate XL (Toprol-XL) 25 MG 24 hr tablet 1 tablet (25 mg). 4 Active montelukast (Singulair) 10 MG tablet 1 tablet (10 mg). 4 Active cetirizine (ZyrTEC) 10 MG tablet Take 1 tablet by mouth daily. 5 Active losartan (Cozaar) 50 MG tablet Take 1 tablet by mouth daily. Active valACYclovir (Valtrex) 1 g tablet Take 1 tablet (1,000 mg) by mouth if needed. 4 02/03/20 25 Discontinue d(Reorder) valACYclovir (Valtrex) 1 g tabletIndicatio ns:History of PCR DNA positive for HSV1 Take 2 tablets by mouth 2 times a day for 1 day. 4 tablet 4 5 02/04/20 25 metroNIDAZOLE (Flagyl) 500 MG tabletIndicatio ns:Vaginal discharge Take 1 tablet by mouth 2 times a day for 7 days. 14 tablet 5 02/12/20 25 Active Problems Problem Noted Date Diagnosed Date [...] Encounters Date Type Department Care Team Description 02/02/2025 Telephone Obstetrics & Gynecology [address] [place] [address] Eleni Fernandez RN 01/28/2025 8:00 AM EDT Office Visit Obstetrics & Gynecology [address] [place] [address] Lyssa Brennan, HIV NURSE Encounter for gynecological examination without abnormal finding (Primary Dx); Routine screening for STI (sexually transmitted infection); Vaginal discharge 01/28/2025 Results Follow-Up Obstetrics & Gynecology [address] [place] [address] Lyssa Brennan, QUINTEN 01/28/2025 Travel 01/19/2025 12:00 PM EDT Clinical Support Obstetrics & Gynecology [address] [place] [address] UTI symptoms (Primary Dx) 01/19/2025 Travel 01/18/2025 Refill Obstetrics & Gynecology [address] [place] [address] Cornel Dasilva MD Acute cystitis with hematuria 12/17/2024 9:00 AM EDT Office Visit Obstetrics & Gynecology [address] [place] [address] Cornel Dasilva MD Status post surgery (Primary Dx); Acute cystitis with hematuria; Encounter for screening mammogram for malignant neoplasm of breast 12/17/2024 Travel 12/15/2024 Travel 12/02/2024 Telephone Obstetrics & Gynecology [address] [place] [address] Cornel Dasilva MD from Last 3 Months Family History Medical [...] F) 01/28/2025 8:27 AM EDT Respiratory Rate 20 10/01/2024 10:08 AM EDT Oxygen Saturation 98% 01/28/2025 8:27 AM EDT Inhaled Oxygen Concentration - - Weight 141 kg (311 lb 11.7 oz) 01/28/2025 8:27 A M EDT Height 170.2 cm (5' 7 ) 12/17/2024 8:58 AM EDT Body Mass Index 48.82 12/17/2024 8:58 AM EDT Plan of Treatment Upcoming Encounters Date Type Department Care Team (Late st Contact Info) Description 12/22/2025 8:45 AM EDT Procedure Visit Obstetrics & Gynecology [address] [place] [address] Cornel Dasilva MD [address] [place] [address] Health Maintenance Due Date Last Done Comments [facility]-/Child/Adol SDOH Screenings 1982 [facility]-Varicella Vaccines (1 of 2 - 13+ 2-dose series) 1995 [facility]- SDOH Screenings 2000 [facility]-Adult SDOH Screenings 2000 [facility]-Hepatitis B Vaccines (1 of 3 - 19+ 3-dose series) 2001 [facility]-Pneumococcal Vaccine: Pediatrics (0 to 5 Years) and At-Risk Patients (6 to 49 Years) (1 of 2 - PCV) 2001 HPV Vaccines (1 - 3-dose SCDM series) 2009 [facility]-PWHPS-31 Vaccine (2 - 2024- season) 2025 09/09/2020 [facility]-Influenza Vaccine (#1) 2025 [facility]-Depression Screening 01/28/2026 01/28/2025, 11/01 [facility]-Zoster Vaccines (1 of 2) 2032 [facility]-DTaP,Tdap,and Td Vaccines (2 - Td or Tdap) 07/31/2033 08/01/2023 [facility]-Hepatitis A Vaccines Aged Out 11/02/2018, 07/2017 No longer eligible based on patient's age to complete this topic [facility]-Cervical Cancer Screening Discontinued [facility]-HPV/Cotest Discontinued 12/13/2023 [facility]-Pap Smear Discontinued 12/13/2023 [facility]-HIV Screening Completed 01/28/2025 [facility]-Hepatitis C Screening Completed 01/28/2025 [facility]-Obesity Intervention Completed 025, 01/19/2025, 12/17/2024, Additional history exists [facility]-HIB Vaccines Aged Out No longer e ligible based on patient's age to complete this topic [facility]-IPV Vaccines Aged Out No longer e ligible based on patient's age to complete this topic [facility]-Rotavirus Vaccines Aged Out No lo nger eligible based on patient's age to complete this topic Procedures Procedure Name Priority Date/Time Associated Diagnosis Comments HIV 1/2 ANTIBODY/ANTIGEN SCREEN WITH REFLEX TO [...] (sexually transmitted infection) HIV 1/2 ANTIBODY/ANTIGEN SCREEN W/REFLEX TO HIV [...] (sexually transmitted infection) POCT URINALYSIS DIPSTICK Routine 01/19/2025 1:07 PM EDT UTI symptoms URINE CULTURE Routine 01/19/2025 1:06 PM EDT UTI symptoms URINE CULTURE Routine 12/17/2024 9:07 AM EDT Status post surgery POCT URINALYSIS DIPSTICK Routine 12/17/2024 9:06 AM EDT Status post surgery REFERRED THINPREP PAP AND HPV (SO) Routine 12/13/2023 10:02 AM EDT Encounter for gynecological examination (general) (routine) with abnormal findings from Last 3 Months or Most Recently Relevant to Health Maintenance Results * Treponema Pallidum (Syphilis) Antibodies with Reflex to RPR and RPR Titer (Those with NO known Syphilis) (01/28/2025 8:49 AM EDT) Syphilis Antibody (IgG+IgM) Nonreactive Nonreactive 01/28/2025 3:[address] [facility] Comment:Nonreactive. No sero logic evidence of syphilis. No follow-up necessary unless clinically indicated (e.g., early syphilis). Blood Venous blood specimen / Unknown Venipuncture / Unknown 01/28/2025 8:49 AM EDT 01/28/2025 1:41 PM EDT Lyssa Brennan APRN LAB BLOOD ORDERABLES Final Result [facility] [address] [place] [address] * Trichomonas Vaginalis Antigen (01/28/2025 8:49 AM EDT) Trichomonas vaginalis Antigen Result Negative Negative 01/28/2025 3:[address] [facility] Swab Vaginal structure / Unknown Non-blood Collection / Unknown 01/28/2025 8:49 AM EDT 01/28/2025 2:[address] [facility] - 01/28/2025 3:12 PM EDT This test was developed and its performance characteristics determined by [facility]. It has not been [...] high complexity clinical laboratory testing. Lyssa Brennan HIV NURSE LAB MICROBIOLOGY - GENERAL ORDERABLES Final Result Performing Organization Address [facility] Co de Phone Number [facility] [address] [place] [address] * Chlamydia trachomatis DNA by PCR (01/28/2025 8:49 AM EDT) Chlamydia trachomatis DNA PCR Result Not Detected Not Detected 01/29/2025 11:07 AM EDT [facility] Swab Vaginal structure / Unknown Non-blood Collection / Unknown 01/28/2025 8:49 AM EDT 01/28/2025 2:[address] [facility] - 01/29/2025 11:07 AM EDT This test is performed by the zLense instrument for Real Time PCR C. trachomatis and N. gonorrhea. This test is FDA approved for use with endocervical, vaginal, and urine specimens. This test is used for clinical purposes. It should not be regarded as invesigational or for research. The [facility] is certified under the Clinical Laboratory Improvement Amendments of 1988 (CLIA-88) as qualified to perform high complexity clinical laboratory testing. Lyssa B Mika BANNER LAB MICROBIOLOGY - GENERAL ORDERABLES Final Result Performing Organization Address [facility] de Phone Number [facility] [address] [place] [address] * (ABNORMAL) Herpes Simplex Type 1 and Type 2 Glycoprotein G-Specific Antibodies, IgG (01/28/2025 8:49 AM EDT) HSV 1 Glycoprotien G Ab, IgG 29.30(H) <=0.89 IV 01/30/2025 11:37 AM EDT [facility] ([place]) HSV 2 Glycoprotein G Ab, IgG 0.03 <=0.89 IV 01/30/2025 11:37 AM EDT [facility] ([id number]) Blood Venous blood specimen / Unknown Venipuncture / Unknown 01/28/2025 8:49 AM EDT 01/28/2025 1:41 PM EDT Narrative [facility] RODNEY BERRY) - 01/30/2025 11:37 AM EDT REFERENCE INTERVAL: [...] HSV-2 is </= 3.0 IV. Performed By: [facility] [address] [place] [address] Phys Therapist: Elgin Fontaine MD, PhD CLIA Number: [id number] us Lyssa Brennan APRN LAB BLOOD ORDERABLES Final Result [facility] Aseptia KRISTI) [address] [place] [address] * Libyb Vaginitis Panel, Reflex to Fluconazole Resistance (01/28/2025 8:49 AM EDT) See Scanned Result SEE SCANNED REPORT 02/03/2025 4:02 PM EDT [facility] Swab Endocervical structure / Unknown Non-blood Collection / Unknown 01/28/2025 8:49 AM EDT 01/28/2025 1:41 PM EDT us Lyssa Brennan APRN LAB REF LAB BLOOD AND FLUID ORD Final Result Performing Organization Address City/[facility]/ZIP Co de Phone Number [facility] * Bacterial Vaginosis Panel, Reflex to Lactobacillus Recovery (01/28/2025 8:49 AM EDT) Pathologist [facility] See Scanned Result SEE SCANNED REPORT 02/03/2025 4:01 PM EDT [facility] Swab Endocervical structure / Unknown Non-blood Collection / Unknown 01/28/2025 8:49 AM EDT 01/28/2025 1:41 PM EDT us Lyssa Brennan APRN LAB REF LAB BLOOD AND FLUID ORD Final Result Performing Organization Address [facility] Co de Phone Number [facility] * HIV 1 & 2 Antibody/Antigen Screen (01/28/2025 8:49 AM EDT) Pathologist [facility] HIV 1 & 2 Antibody/Antigen Screen Non Reactive Non Reactive 01/28/2025 2:[address] [facility] Comment:Screening for HIV 1 & 2 antibodies, and P24 antigen is NONREACTIVE. No confirmatory testing is required. Blood Venous blood specimen / Unknown Venipuncture / Unknown 01/28/2025 8:49 AM EDT 01/28/2025 1:41 PM EDT us Lyssa Brennan APRN LAB BLOOD ORDERABLES Final Result Performing Organization Address City/[facility]/ZIP Co de Phone Number [facility] [address] [place] [address] * Hepatitis C Antibody w/Reflex to HCV Quant PCR (01/28/2025 8:49 AM EDT) Hepatitis C Antibody Negative Negative 01/28/2025 2:[address] [facility] Blood Venous blood specimen / Unknown Venipuncture / Unknown 01/28/2025 8:49 AM EDT 01/28/2025 1:41 PM EDT Lyssa Brennan HIV NURSE LAB BLOOD ORDERABLES Final Result Performing Organization Address City/[facility] Co de Phone Number [facility] [address] [place] [address] * Neisseria gonorrhea DNA by PCR (01/28/2025 8:49 AM EDT) [facility] Neisseria gonorrhea DNA PCR Result Not Detected Not Detected. 01/29/2025 11:07 AM EDT [facility] Swab Vaginal structure / Unknown Non-blood Collection / Unknown 01/28/2025 8:49 AM EDT 01/28/2025 2:[address] [facility] - 01/29/2025 11:07 AM EDT This test is performed by the [employer] m2000 instrument for Real Time PCR C. trachomatis and N. gonorrhea. This test is FDA approved for use with endocervical, vaginal, and urine specimens. This test is used for clinical purposes. It should not be regarded as invesigational or for research. The [facility] is certified under the Clinical Laboratory Improvement Amendments of 1988 (CLIA-88) as qualified to perform high complexity clinical laboratory testing. Lyssa Brennan APRN LAB MICROBIOLOGY - GENERAL ORDERABLES Final Result Performing Organization Address City/[facility]/ZIP Co de Phone Number [facility] [address] [place] [address] * Hepatitis B Surface Antigen (01/28/2025 8:49 AM EDT) Pathologist [facility] Hepatitis B Surf Antigen Negative Negative 01/28/2025 3:08 PM EDT [facility] Blood Venous blood specimen / Unknown Venipuncture / Unknown 01/28/2025 8:49 AM EDT 01/28/2025 1:41 PM EDT Lyssa Brennan APRN LAB BLOOD ORDERABLES Final Result Performing Organization Address City/[facility]/ZIP Co de Phone Number [facility] [address] [place] [address] * POCT Urinalysis Dipstick (01/28/2025 8:35 AM EDT) Only the most recent of3 resultswithin the time period is included. POCT Urine Color Light Yellow POCT Urine Clarity Clear POCT Glucose Urine Negative Negative mg/dL POCT Bilirubin, Urine Negative Negative POCT Ketones, Urine Negative Negative mg/dL POCT Specific [place], Urine 1.015 POCT Blood, Urine Negative Negative POCT pH, Urine 6.5 5.0 to 8.0 POCT Protein, Urine Negative Negative mg/dL POCT Urobilinogen, Urine 0.2 0.2, 1 E.U./dL POCT Nitrite, Urine Negative Negative POCT Leukocyte Esterase, Urine Negative Negative Test Strip Lot Number [id number] Test Strip Lot Expiration 03/2025 Urine Urine specimen obtained by clean catch procedure / Unknown 01/28/2025 8:35 AM EDT Lyssa Brennan APRN POINT OF CARE TEST ENTER/ED IT ORDERABLES Final Result * Urine Culture (01/19/2025 1:06 PM EDT) Only the most recent of2 resultswithin the time period is included. Pathologist [facility] Culture <10,000 CFU/mL Mixed urogenital, fecal, or skin regla present. 01/21/2025 10:[address] [facility] Urine Urine specimen obtained by clean catch procedure / Unknown Non-blood Collection / Unknown 01/19/2025 1:06 PM EDT 01/19/2025 6:51 PM EDT Cornel Dasilva MD LAB MICROBIOLOGY - GENERAL ORDE RABELIO Final Result Performing Organization Address City/[facility]/ZIP Co de Phone Number [facility] [address] [place] [address] * Referred ThinPrep Pap and HPV (SO) (12/13/2023 10:02 AM EDT) Pap, Source Cx/Vagina 12/20/2023 5:32 PM EDT [facility] ([place]) EER Referred ThinPrep Pap and HPV See Note 12/20/2023 5:32 PM EDT [facility] ([place]) PAP, THINPREP Normal 12/20/2023 5:32 PM EDT [facility] ([facility]) High Risk HPV Normal 12/20/2023 5:32 PM EDT [facility] ([facility]) Swab Vaginal and cervical cytologic material / Unknown Non-blood Collection / Unknown 12/13/2023 10:02 AM EDT 12/13/2023 12:41 PM EDT Narrative [facility] ([place]) - 12/20/2023 5:32 PM EDT Authorized individuals can access the [employer] Enhanced Report using the following link: [email or web address] Performed By: [facility] [address] [place] [id number] Phys Therapist: Elgin Fontaine MD, PhD CLIA Number: [id number] SPECIMEN PART A. Cervical, Endocervical, Vaginal, ThinPrep Pap (Mixing Tumbler Operator) CYTOLOGY HX Date of Last Menstrual Period: n FINAL DIAGNOSIS INTERPRETATION: Negative for Intraepithelial Lesion or Malignancy. SPECIMEN ADEQUACY:Satisfactory for evaluation. Endocervical/transformation zone component is absent/insufficient. Electronically Signed Out : Performed by: [facility] [address] [place] [address] [place] [address] Claribel Linn MD, HR-HPV: Negative Test performed by the FDA-approved Hologic (Gen-Probe) APTIMA HPV test, which detects HPV genotypes: 16, 18, 31, 33, 35, 39, 45, 51, 52, 56, 58, 59, 66, and 68. Performed by: [facility] [address] [place] [address] Claribel Linn MD, us Samanta Leon RN LAB REF LAB BLOOD AND FLUID OR D Final Result [facility] ([place]) [address] [place] [address] from Last 3 Months or Most Recently Relevant to Health Maintenance Insurance [facility] Care Teams Apprentice Plumber Relationship Specialty Start Date End Date Grabiel Arenas DO [address] [place] [address] [place] [address] PCP - General 11/07/24
--- OUTSIDE RECORDS SUMMARY | 2025-02-24 10:14 | XMS_ITS | Patient Health Record ---
Author Organization [facility] Address [address] [place] [address] Care Team Providers Care Virtualization Consultant Name Role Phone Migration, Provider Primary Care Provider Unavai lable Allergies Allergen (clinical drug ingredient) Drug/Non Drug Allergy documented on EMR Reaction Allergy Type Onset Date Status Penicillin Unknown Drug Allergy Active Reason For Referral No Information Medications Medication SIG (Take, Route, Frequency, Duration) Notes Start Date End Date Status Sprintec 28 0.25-35 MG-MCG 1 tab(s) orally once a day Active Ibuprofen 800 MG 1 tab(s) orally 3 ti mes a day prn Active Plan Of Treatment No Information Medical (General) History Medical History History ICD Code mennorhagia allergic rhinitis; sinus surgery for abigail yps and septal deviation 2010 Surgical History Surgery Date(Month/Year) Sinus Surgery 2010
--- OUTSIDE RECORDS SUMMARY | 2025-02-24 10:14 | XMS_ITS | Encounter Summary ---
Author Organization Healthcare Address [address] [id number] Care Team Providers Care Air Grinder Name Role Phone Grabiel Arenas DO Primary Care Provider [phone] Encounter Details Date Type Department Care Team (Late st Contact Info) Description 11/23/2024 Results Follow-Up Obstetrics & Gynecology [address] [place] [address] Cornel Dasilva MD [address] [place] [address] Social History Tobacco Use Types [...] at all 12/17/2024 8:59 AM EDT Eleni Fernandez, RN Patient Health Questionnaire -2 Score 0 12/17/2024 8:59 AM EDT Eleni Fernandez, RN documented as of this encounter Plan of Treatment Upcoming Encounters Date Type Department Care Team (Late st Contact Info) Description 12/22/2025 8:45 AM EDT Procedure Visit Obstetrics & Gynecology [address] [place] [address] Cornel Dasilva MD [address] [place] [address] documented as of this encounter [...] documented as of this encounter Care Teams Air Grinder Relationship Specialty Start Date End Date Garbiel Arenas DO [address] [place] [address] [place] [address] PCP - General 11/07/24 documented as of this encounter
--- OUTSIDE RECORDS SUMMARY | 2025-02-24 10:14 | XMS_ITS | Encounter Summary ---
Author Organization Healthcare Address [address] [id number] Care Team Providers Care Rubber Tire Curer Name Role Phone Grabiel Arenas DO Primary Care Provider [phone] Encounter Details Date Type Department Care Team (Late st Contact Info) Description 12/02/2024 Telephone Obstetrics & Gynecology [address] [place] [address] Cornel Dasilva MD [address] [place] [address] Social History Tobacco Use Types [...] Not at all 12/17/2024 8:59 AM EDT Elnei Fernandez RN Feeling down, depressed, or hopeless Not at all 12/17/2024 8:59 AM EDT Eleni Fernandez, RN Patient Health Questionnaire -2 Score 0 12/17/2024 8:59 AM EDT Eleni Fernandez, RN documented as of this encounter Miscellaneous Notes * Telephone Encounter - Catarina Albarran - 12/02/2024 1:24 PM EDT Clinical Concern/Question Reason for Call: [employer] life is calling for details of her surgery Best contact number: Other: [phone] Dinorah Optimal time of day to reach caller: ANYTIME Additional comments/information from caller: None Note: Please do not reply to this message. Follow-up communication and further actions as a result of this message need to be communicated with the patient directly, if the patient is not active onMyChart. If the patient is active on MyChart, they will receive notification of the communication/outcome via Consumer Agent Portal (CAP)hart. documented in this encounter Plan of Treatment Upcoming Encounters Date Type Department Care Team (Late st Contact Info) Description 12/22/2025 8:45 AM EDT Procedure Visit Obstetrics & Gynecology [address] [place] [address] Cornel Dasilva MD [address] [place] [address] documented as of this encounter [...] documented as of this encounter Care Teams Rubber Tire Curer Relationship Specialty Start Date End Date Grabiel Arenas DO [address] [facility] [address] [place] [address] PCP - General 11/07/24 documented as of this encounter
[2025-02-25 16:13] LABS: HSV-1 DNA Negative (Negative); HSV-2 DNA Negative (Negative)
[2025-02-27 01:09] LABS: Mycoplasma genitalium, NAA Negative (Negative); Neisseria gonorrhoeae, NAA Negative (Negative)
== END 2025-02-23 23:59 | disposition home or self-care (01) ==
LOC: LAB.DROPOF 02-24 10:06
PROVIDERS: PCP Nurse Practitioner Family; Visit Provider Nurse Practitioner Family
DX: Z20.2 Contact with and (suspected) exposure to infections with a predominantly sexual mode of transmission (principal); R23.2 Flushing; I10 Essential (primary) hypertension
CPT/HCPCS: 80053; 80074; 82670; 83001; 83002; 84144; 84443; 85025; 87070; 87077; 87205; 87389; 87491; 87529; 87563; 87591; 87661

== ENCOUNTER 2025-05-07 14:25 | Outpatient (CLI) | payer OTHER, SELFPAY | END 2025-05-07 23:59 | disposition home or self-care (01) | LOC: LAB 14:26 | PROVIDERS: PCP Nurse Practitioner Family; Visit Provider Nurse Practitioner Family | DX: Z11.9 Encounter for screening for infectious and parasitic diseases, unspecified (principal); Z20.2 Contact with and (suspected) exposure to infections with a predominantly sexual mode of transmission | CPT/HCPCS: 87491; 87563; 87591; 87661 ==